=== PATIENT | male | born 1940 | race Hispanic/Latino ===

== ENCOUNTER 2020-06-12 21:12 | Inpatient (IN) | payer OTHER ==
--- OUTSIDE RECORDS SUMMARY | 2020-06-12 21:14 | XMS REPORT ---
:1940 Author Organization [facility] Address [address] 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 404128794 osteoarthritis involving multiple joints Problem Controlled type 2 E11.9 Active 553378447 diabetes mellitus without complication, without long-term current use of insulin Problem 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 Problem Gastroesophageal K21.9 Active 092376436 reflux disease, esophagitis presence not specified Problem Current mild F32.0 Active 33178855 episode of major depressive disorder without prior episode Problem Other chronic pain G89.29 Active 69750586 Problem Need for R26.89 Active 158054836 assistance due to unsteady gait Problem CKD (chronic N18.4 Active 356535423 kidney disease) stage 4, GFR 15-29 ml/min Problem Hyperlipidemia E78.5 Active 58437142 Problem Unsteady gait R26.81 Active 63405672 Problem Chronic kidney N18.4 Active 674716052 disease, stage 4 (severe) Problem Diabetes E11.9 Active 647454673 Problem Vitamin D E55.9 Active 31444659 deficiency Problem Benign prostatic N40.0 Active 773917824 hyperplasia, unspecified whether lower urinary tract symptoms present Problem Primary M17.11 Active 245945708857350 osteoarthritis of right knee Problem Primary M17.12 Active 359493929415551 osteoarthritis of left knee Problem Hypoglycemic E11.649 Active 056606510 episode in patient with diabetes mellitus ALLERGIES No Known Allergies ENCOUNTERS from 1940 to 2020-06-10 Encounter Location Date Provider Diagnosis [facility] Family [address] [facility] [address], [place] [address] IMMUNIZATIONS No Information SOCIAL HISTORY Tobacco Use: Social History Observation Description Date Details (start date - stop date) Former Smoker Sex Assigned At : Social History Observation Description Sex Assigned At Unknown PHQ9 Question Answer Notes Little interest or pleasure in doing things Several days Feeling down, depressed, or hopeless Not at all Trouble falling or staying asleep or sleeping too much Sever al days Feeling tired or having little energy Several days Poor appetite or overeating Not at all Feeling bad about yourself, or that you are a failure, or No t at all have let yourself or your family down Trouble concentrating on things, such as reading the Not at all newspaper or watching television Moving or speaking so slowly that other people could have No t at all noticed; or the opposite, being so fidgety or restless that you have been moving around a lot more than usual Total Score 3 Interpretation Minimal Depression Thoughts that you would be better off or of hurting Not at all yourself in some way Alcohol Screen Question Answer Notes Did you have a drink containing alcohol in the past year? No Points 0 Interpretation Negative Tobacco Use/Smoking Question Answer Notes Are you a former smoker REASON FOR REFERRAL No Information VITAL SIGNS No information MEDICATIONS Medication SIG (Take, Route, Notes Start Date End Date Status Frequency, Duration) Accu-Chek Estephania Plus - as directed In Vitro Active twice a day for 90 Cholecalciferol 5000 UNIT 1 capsule Orally Once a November, Active day for 30 day(s) Simvastatin 20 MG 1 tablet in the evening Active Orally Once a day for 90 day(s) Magnesium Chloride-Calcium as directed Orally November, Active 64-106 MG Glimepiride 4 MG Take 1 tablet by mouth Active twice daily for 90 days for 90 Micardis HCT 80-12.5 MG 1 tablet Orally Once a Active day for 90 days Trulicity 1.5 MG/0.5ML INJECT ONE DOSE UNDER Active THE SKIN ONCE A WEEK for 28 Carvedilol 12.5 MG twice daily Orally daily Active for 90 days Carvedilol 12.5 MG Take 1 tablet by mouth Active twice daily for 90 Trulicity 1.5 MG/0.5ML INJECT 1 DOSE Active SUBCUTANEOUSLY ONCE A WEEK for 90 days Tradjenta 5 MG 1 tablet Orally Once a Active day for 90 days Pioglitazone HCl 15 MG 1 tablet Orally Once a Active day for 30 day(s) Lancets - as directed SC twice Acti ve daily for 90 days BuPROPion HCl ER (SR) 100 TAKE 1 TABLET BY MOUTH Active MG ONCE DAILY IN THE MORNING FOR 90 DAYS for 90 Accu-Chek Estephania Plus - as directed In Vitro Active twice a day for 90 day blood Glucose Test Strips as directed twice a day Active for 90 days Doxazosin Mesylate 1 MG 1 tablet Orally Once a Feb, Active day for 90 days Wellbutrin SR 100 MG 1 tablet in the morning Active Orally Once a day for 90 Wellbutrin SR 100 MG 1 tablet in the morning Active Orally Once a day for 90 days Glimepiride 4 MG 1 tablet Orally twice a Active day for 90 day(s) Allopurinol 100 MG as directed Orally once Active a day for 90 days Gabapentin 300 MG 1 capsule Orally Once a Active day for 90 days Ranitidine HCl 150 MG 1 tablet as needed Active Orally Twice a day for 90 days Glucometer n/s one n/s use as directed Active for 90 days Cetirizine HCl 10 MG 1 tablet Orally Once a Active day for 90 day(s) Pioglitazone HCl 15 MG 1 tablet Orally Once a Aug, Active day for 30 day(s) PROCEDURES No Information RESULTS No Results REASON FOR VISIT positive covid MEDICAL (GENERAL) HISTORY Type Description Date Medical History Diabetes Medical History Benign essential HTN Medical History Hyperlipidemia Medical History Vitamin D deficiency Medical History nsaids-yes Surgical History No Surgical history information Goals Section No Information Health Concerns No Information MEDICAL EQUIPMENT No Information MENTAL STATUS No Information FUNCTIONAL STATUS No Information ASSESSMENTS No Information PLAN OF TREATMENT Medication Medication Name Sig Start Date Stop Date Pioglitazone HCl 15 MG 1 tablet Orally Once a day for 30 day(s) Glucometer n/s one n/s use as directed for 90 days Tradjenta 5 MG 1 tablet Orally Once a day for 90 days Accu-Chek Estephania Plus - as directed In Vitro twice a day for 90 day Micardis HCT 80-12.5 MG 1 tablet Orally Once a day for 90 days Carvedilol 12.5 MG twice daily Orally daily for 90 days blood Glucose Test Strips as directed twice a day for 90 days Trulicity 1.5 MG/0.5ML INJECT 1 DOSE SUBCUTANEOUSLY ONCE A WEEK for 90 days Glimepiride 4 MG 1 tablet Orally twice a day for 90 day(s) Lancets - as directed SC twice daily for 90 days Next Appt Details Provider Name:Genet Díaz, 2020-06-21 03:0 0:00 PM, [address], [address], [place], [address], Insurance Providers Payer Name Payer Payer Insured Patient Coverage Coverage End Address Phone Name Relationship to Start Date Agusto e Insured [phone] Marcie,Hum self 2017 [employer] [id number] [place] [address]
--- OUTSIDE RECORDS SUMMARY | 2020-06-12 21:14 | XMS REPORT | Continuity of Care Document ---
:1940 Author Organization [facility] Address [address] [place] [address] Care Team Providers Name Role Phone Unavailable Unavailable Unavailable Problems This patient has no known problems. Allergies, Adverse Reactions, Alerts This patient has no known allergies or adverse reactions. Medications Ordered Filled Start Stop Current Ordering Indication Dosage Frequency Signature Comments Components Source Medication Medication Date Date Medication? Clinician (SIG) Name Name Doxazosin Doxazosin Yes Na Díaz [address] [facility] Mesylate Mesylate 8-18 [facility]: [facility] 00 [facility] Lancets Lancets 2018-07 Yes Na Díaz as [facility] 0-29 directed [facility] - [facility]: Memoria 00 [facility] blood blood 2018-07- No Na Díaz as [facility] Glucose Glucose 0-29 10-23 directed Luke s - Test Strips Test Strips 00:00: 00:00 Memoria 00 :00 [facility] Allopurinol Allopurinol 2018-07- No Na Díaz as [facility] 0-29 04-26 directed [facility] - 00:00: 00:00 Memoria 00 :00 [facility] Glucometer Glucometer 2018-07- No Na Díaz one [facility] 0-29 04-26 [facility] - 00:[facility]: 00:00 Memoria 00 :00 [facility] Pioglitazon Pioglitazon Yes Na Díaz [address] [facility] e HCl e HCl 2-25 [facility] - 00:[facility]: [facility] 00 [facility] Micardis Micardis 2017-07 Yes Na Díaz [address] [facility] HCT HCT 1-26 [facility] Magnesium Magnesium Yes Na Díaz as [facility] Chloride-Ca Chloride-Ca 5-10 directed [facility] - lcium lcium 00:00: Memoria 00 [facility] Cholecalcif Cholecalcif Yes Na Díaz [address] [facility] philipp philipp 5-10 [facility] - 00:00: [facility] 00 [facility] ent [facility] Wellbutrin Wellbutrin Yes Na Díaz [address] [facility] Accu-Chek Accu-Chek Yes Na Díaz as [facility] Estephania Plus Estephania Plus directed [facility] ent [facility] Carvedilol Carvedilol Yes Na Díaz twice [facility] daily [facility] Cetirizine Cetirizine Yes Na Díaz [address] [facility] HCl HCl [facility] Simvastatin Simvastatin Yes Na Díaz [address] [facility] in the [facility] - evening [facility] Ranitidine Ranitidine Yes Na Díaz [address] [facility] HCl HCl as needed [facility] Wellbutrin Wellbutrin Yes Na Díaz [address] [facility] SR SR in the [facility] Tradjenta Tradjenta Yes Na Díaz [address] [facility] Gabapentin Gabapentin Yes Na Díaz [address] [facility] Glimepiride Glimepiride Yes Na Díaz [address] [facility] BuPROPion BuPROPion Yes Na Díaz TAKE [address] [facility] HCl ER (SR) HCl ER (SR) TABLET BY [facility] - MOUTH ONCE [facility] Clinics DAYS Trulicity Trulicity 2019- No Na Díaz INJECT [address] [facility] [facility] 10-15 DOSE [facility] - 00:00 SUBCUTANEO Memoria :00 USLY ONCE l A WEEK [facility] Clin[facility] Procedures This patient has no known procedures. Encounters Start End Encounter Admission Attending Care Care Encounter Source Date/Time Date/Time Type Type Clinicians Facility Department ID 2020-06-08 2020-06-08 Outpatient [facility] [id number] [facility] 2020-06-06 2020-06-06 [facility] [id number] [facility] 2020-02-23 2020-02-23 [facility] [id number] [facility] 09:02:00 09:02:00 t [facility] [facility] Medicine Outpati ent Clinics 2020-02-04 2020-02-04 [facility] [id number] [facility] 15:00:00 15:00:00 t [employer] [facility] Medicine Outpati ent Clinics 2020-01-23 2020-01-23 [facility] [id number] 13:45:00 13:45:00 t [employer] [facility] Medicine Outpati ent Clinics 2019-10-29 2019-10-29 [facility] [id number] [facility] 10:40:00 10:40:00 t [employer] [facility] Medicine Outpati ent Clinics 2019-08-05 2019-08-05 [facility] [id number] [address] 08:00:00 08:00:00 t [employer] Consult[employer] [facility] Medicine Outpati ent Clinics 2019-07-24 2019-07-24 [facility] [id number] 16:14:00 16:14:00 t [employer] Consult[employer] [facility] Medicine Outpati ent Clinics 2019-05-05 2019-05-05 [facility] [id number] 13[facility]40:00 13:40:00 t [employer] Consult[employer] [facility] Medicine Outpati ent Clinics 2019-02-02 2019-02-02 [facility] [id number] [address] 10:00:00 10:00:00 t Bone Bone and [facility] ent Clinics 2019-01-21 2019-01-21 [facility] [id number] 11:00:00 11:00:[address] LuIntradiem s - Drive [facility] Medicine Outpati ent Clinics 2018-12-23 2018-12-23 [facility] [id number] [address] 10:23:00 10:23:00 t [place] [employer] s - Drive [facility] Medicine Outpati ent Clinics 2018-09-17 2018-09-17 [facility] [id number] 10:35:00 10:35:00 t [place] [employer] [employer] - [place] [facility] Medicine Outpati ent Clinics 2018-09-09 2018-09-09 [facility] [id number] 10:45:00 10:45:00 t [place] [employer] - Drive [facility] Medicine Outpati ent Clinics 2018-08-12 2018-08-12 [facility] [id number] 10:30:00 10:30:00 t [place] [employer] - Drive [facility] Medicine Outpati ent Clinics 2018-02-19 2018-02-19 [facility] [id number] 09:30:00 09:30:00 t [place] [employer] [employer] - [place] [facility] Medicine Outpati ent Clinics 2017-11-19 2017-11-19 [facility] [id number] 11:00:00 11:00:00 t [place] [employer] [employer] - [place] [facility] Medicine Outpati ent Clinics Results This patient has no known results.
--- OUTSIDE RECORDS SUMMARY | 2020-06-12 21:14 | XMS REPORT ---
:1940 Author Organization [facility] Address [address] [place], [address] [place] [address] Care Team Providers Name Role Phone Díaz Unavailable [phone] PROBLEMS Type Condition ICD9-CM [id number] Onset Condition SNOMED Code Notes Code Code Dates Status Problem Vitamin D E55.9 Active 98839661 deficiency Problem Hyperlipidemia E78.5 Active 68299805 Problem Controlled type 2 E11.9 Active 797209471 diabetes mellitus without complication, without long-term current use of insulin Problem Benign essential I10 Active 21700658 HTN Problem Obesity (BMI E66.9 Active 193084748 30-39.9) Problem CKD (chronic N18.3 Active 419004383 kidney disease) stage 3, GFR 30-59 ml/min Problem Neuropathy G62.9 Active 008153165 Problem Hyperglycemia R73.9 Active 11499586 Problem CKD (chronic N18.4 Active 558079829 kidney disease) stage 4, GFR 15-29 ml/min Problem 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 458221085 with chronic renal failure Problem Seasonal allergies J30.2 Active 201644817 Problem Primary M17.11 Active 156819468311647 osteoarthritis of right knee Problem Chronic kidney N18.4 Active 031497438 disease, stage 4 (severe) Problem Primary M17.12 Active 925600880138449 osteoarthritis of left knee Problem 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 Active 977473848 osteoarthritis involving multiple joints Problem Diabetes E11.9 Active 748685182 Problem Gastroesophageal K21.9 Active 962550085 reflux disease, esophagitis presence not specified Problem Current mild F32.0 Active 26818274 episode of major depressive disorder without prior episode Problem Other chronic pain G89.29 Active 40399534 Problem Benign prostatic N40.0 Active 803737734 hyperplasia, unspecified whether lower urinary tract symptoms present ALLERGIES No Known Allergies ENCOUNTERS from 1940 to 2020-06-07 Encounter Location Date Provider Diagnosis [facility] [address] [facility] [address], [address] [place] [address] IMMUNIZATIONS No Information SOCIAL HISTORY Tobacco Use: [...] Start Date End Date Status Frequency, Duration) Ranitidine HCl 150 MG 1 tablet as needed Active Orally Twice a day for 90 days Pioglitazone HCl 15 MG 1 tablet Orally Once a Active day for 30 day(s) Tradjenta 5 MG 1 tablet Orally Once a Active day for 90 days Doxazosin Mesylate 1 MG 1 tablet Orally Once a Feb, 0 Active day for 90 days Gabapentin 300 MG 1 capsule Orally Once Active a day for 90 days Pioglitazone HCl 15 MG 1 tablet Orally Once a Aug, Active day for 30 day(s) Wellbutrin SR 100 MG 1 tablet in the Active morning Orally Once a day for 90 days Cholecalciferol 5000 UNIT 1 capsule Orally Once 10 May, 20 18 Active a day for 30 day(s) Lancets - as directed SC twice Acti ve daily for 90 days blood Glucose Test Strips as directed twice a Active day for 90 days Simvastatin 20 MG 1 tablet in the Ac tive evening Orally Once a day for 90 day(s) Glimepiride 4 MG Take 1 tablet by mouth Active twice daily for 90 days for 90 Glucometer n/s one n/s use as Active directed for 90 days Wellbutrin SR 100 MG 1 tablet in the Active morning Orally Once a day for 90 Trulicity 1.5 MG/0.5ML INJECT ONE DOSE UNDER Active THE SKIN ONCE A WEEK for 28 Micardis HCT 80-12.5 MG 1 tablet Orally Once a Active day for 90 days BuPROPion HCl ER (SR) 100 MG TAKE 1 TABLET BY MOUTH Active ONCE DAILY IN THE MORNING FOR 90 DAYS for 90 Allopurinol 100 MG as directed Orally Active once a day for 90 days Accu-Chek Estehpania Plus - as directed In Vitro Active twice a day for 90 Magnesium Chloride-Calcium as directed Orally November, Active 64-106 MG Cetirizine HCl 10 MG 1 tablet Orally Once a Active day for 90 day(s) Carvedilol 12.5 MG Take 1 tablet by mouth Active twice daily for 90 PROCEDURES No Information RESULTS No Results REASON FOR VISIT Sick visit MEDICAL (GENERAL) HISTORY Type Description Date Medical [...] Medication Name Sig Start Date Stop Date Glimepiride 4 MG Take 1 tablet by mouth twice daily for 90 days for 90 Doxazosin Mesylate 1 MG 1 tablet Orally Once a day for 90 days 1 Feb, Trulicity 1.5 MG/0.5ML INJECT ONE DOSE UNDER THE SKIN ONCE A WEEK for 28 Carvedilol 12.5 MG Take 1 tablet by mouth twice daily for 90 Accu-Chek Estephania Plus - as directed In Vitro twice a day for 90 Next Appt Details Provider Name:Genet Díaz, 2020-06-08 10:2 0:00 AM, [address], [place], [address], Provider Name:Genet Díaz, 2020-06-21 03:0 0:00 PM, [address], [address], [place], [address], Insurance Providers Payer Name Payer Payer Insured Patient Coverage Coverage End Address Phone Name Relationship to Start Date Agusto e Insured [phone] Roseann Jack self 2017 [employer] [id number] [facility] [address] [place] [address]
[2020-06-12 22:01] LABS: Absolute Lymphocytes (CBC) 1.2 K/uL (0.7-4.9); Basophils % 0.5 % (0-1.3); Hematocrit 32.7 % (39.6-49.0); Lymphocytes % 7.5 % (15.3-44.8); MPV 8.3 fL (7.6-11.3); RBC Red Blood Cell Count 3.67 M/uL (4.33-5.43)
[2020-06-12 22:12] LABS: Protime INR 1.37
[2020-06-12 22:20] LABS: ALT/SGPT 57 U/L (12-78); AST/SGOT 46 U/L (15-37); Albumin 2.2 g/dL (3.4-5.0); Alkaline Phosphatase 108 U/L (45-117); BUN Blood Urea Nitrogen 22 mg/dL (7-18); Bicarbonate 29 mmol/L (21-32); Bilirubin Direct 0.2 mg/dL (0-0.2); Bilirubin Total 0.5 mg/dL (0.2-1.0); CKMB Creatine Kinase MB < 1.0 ng/mL (0.3-3.6); Creatine Phosphokinase 54 U/L (39-308); Glucose Level 180 mg/dL (74-106); Lipase 122 U/L (73-393); Magnesium 2.1 mg/dL (1.8-2.4); NT PRO-BNP 644 pg/mL (<450); Potassium 4.5 mmol/L (3.5-5.1); Protein, Total 8.9 g/dL (6.4-8.2); Sodium Level 138 mmol/L (136-145); Troponin (Emerg Dept Use Only) < 0.02 ng/mL (0.0-0.045)
--- NOTE | 2020-06-12 22:49 | EDPHYS ---
Physician Documentation [facility] Name: Brett Jack Age: 80 yrs Sex: Male : 1940 Arrival Date: 06/12/2020 Time: 21:15 Bed 5 Private MD: ED Physician Gildardo Ferrara HPI: 06/12 23:02 This 80 yrs old Male presents to ER via Wheelchair with complaints of Low tw4 Oxygen, Covid+. 23:02 The patient has shortness of breath at rest. Onset: The symptoms/episode began/occurred tw4 2 week(s) ago. Duration: The symptoms are continuous, and are unchanged since they started. The patient's shortness of breath has no apparent modifying factors. Associated signs and symptoms: The patient has no apparent associated signs or symptoms. Severity of symptoms: At their worst the symptoms were moderate in the emergency department the symptoms are unchanged. The patient has not experienced similar symptoms in the past. Historical: - Allergies: 21:25 No Known Allergies; ca1 - PMHx: 21:25 Diabetes - NIDDM; Hypertension; ca1 - PSHx: 21:25 None; ca1 - Immunization history:: Adult Immunizations up to date, Flu vaccine is not up to date. - Social history:: Smoking status: Patient denies any tobacco usage or history of. ROS: 23:02 Constitutional: Negative for fever, chills, and weight loss, Eyes: Negative for injury, tw4 pain, redness, and discharge, Cardiovascular: Negative for chest pain, palpitations, and edema, Abdomen/GI: Negative for abdominal pain, nausea, vomiting, diarrhea, and constipation, Back: Negative for injury and pain, MS/Extremity: Negative for injury and deformity, Skin: Negative for injury, rash, and discoloration, Neuro: Negative for headache, weakness, numbness, tingling, and seizure. 23:02 Respiratory: Positive for shortness of breath, Negative for cough, dyspnea on exertion, hemoptysis, orthopnea, pleurisy. Exam: 23:02 Constitutional: This is a well developed, well nourished patient who is awake, alert, tw4 and in no acute distress. Head/Face: Normocephalic, atraumatic. Chest/axilla: Normal chest wall appearance and motion. Nontender with no deformity. No lesions are appreciated. Cardiovascular: Regular rate and rhythm with a normal S1 and S2. No gallops, murmurs, or rubs. Normal PMI, no JVD. No pulse deficits. Respiratory: Lungs have equal breath sounds bilaterally, clear to auscultation and percussion. No rales, rhonchi or wheezes noted. No increased work of breathing, no retractions or nasal flaring. Abdomen/GI: Soft, non-tender, with normal bowel sounds. No distension or tympany. No guarding or rebound. No evidence of tenderness throughout. Back: No spinal tenderness. No costovertebral tenderness. Full range of motion. MS/ Extremity: Pulses equal, no cyanosis. Neurovascular intact. Full, normal range of motion. Neuro: Awake and alert, GCS 15, oriented to person, place, time, and situation. Cranial nerves II-XII grossly intact. Motor strength 5/5 in all extremities. Sensory grossly intact. Cerebellar exam normal. Normal gait. Vital Signs: 21:20 BP 150 / 65; Pulse 102; Resp 20 S; Temp 100.6(O); Pulse Ox 82% on R/A; Weight 114 kg ca1 (R); Height 5 ft. 10 in. (180 cm) (R); 22:05 BP 145 / 70; Pulse 82; Resp 22; Pulse Ox 91% on 4 lpm NC; lp1 23:09 BP 152 / 51; Pulse 81; Resp 22; Pulse Ox 93% on 4 lpm NC; wh 06/13 00:12 BP 160 / 91; Pulse 83; Resp 22; Temp 99.6; Pulse Ox 93% on 4 lpm NC; wh 06/12 21:20 Body Mass Index 35.19 (114.00 kg, 180 cm) ca1 MDM: 06/12 21:26 Patient medically screened. tw4 23:09 Differential diagnosis: Anemia Anxiety Reaction pneumonia, pulmonary edema, Pulmonary tw4 Embolism reactive airway disease, Sepsis. Antibiotic administration: Zithromax is given. Data reviewed: vital signs, nurses notes. Data interpreted: Pulse oximetry: Interpretation: normal. Counseling: I had a detailed discussion with the patient and/or guardian regarding: the historical points, exam findings, and any diagnostic results supporting the discharge/admit diagnosis, lab results. Physician consultation: Dionte Lee MD was contacted at 23:11, regarding admission, to the telemetry unit. and will see patient in inpatient room, shortly. 06/12 21:34 Order name: Blood Culture Adult (2) [facility] 06/12 21:34 Order name: BMP tw 06/12 22:43 Interpretation: Normal except: GLUC 180; BUN 22; CRE 1.54; GFR 44. tw 06/12 21:34 Order name: CBC with Diff [facility] 06/12 22:47 Interpretation: Normal except: WBC 16.7; RBC 3.67; HGB 10.5; HCT 32.7; PLT 543; NEUT A tw4 14.3; LYM% 7.5; JOAO% 85.6. 12 21:34 Order name: Ckmb [facility] 06/12 22:45 Interpretation: Normal except: CKMB < 1.0. tw 06/12 21:34 Order name: CPK [facility] 06/12 22:45 Interpretation: Normal except: CPK 54. [facility] 06/12 21:34 Order name: D-Dimer; Complete Time: 22:42 [facility] 06/12 22:44 Interpretation: Normal except: D-DIMER 44327. tw 06/12 21:34 Order name: Hepatic Function [facility] 06/12 22:45 Interpretation: Normal except: AST 46; TP 8.9; ALB 2.2; GLOB 6.7; A/G 0.3. tw 06/12 21:34 Order name: Lipase [facility] 06/12 22:45 Interpretation: Within normal limits: LIP 122. [facility] 06/12 21:34 Order name: Magnesium [facility] 06/12 22:45 Interpretation: Within normal limits: MG 2.1. [facility] 06/12 21:34 Order name: NT PRO-BNP [facility] 06/12 22:45 Interpretation: Normal except: NT PRO-BNP 644. [facility] 06/12 21:34 Order name: PT-INR; Complete Time: 22:42 [facility] 06/12 22:45 Interpretation: Normal except: PT 16.1. tw 06/12 21:34 Order name: Ptt, Activated; Complete Time: 22:42 [facility] 06/12 22:46 Interpretation: Within normal limits: PTT 27.0. [facility] 06/12 21:34 Order name: Troponin (emerg Dept Use Only) [facility] 06/12 21:56 Order name: Lactate; Complete Time: 22:42 mw2 06/12 22:45 Interpretation: Normal except: LAC 2.9. tw4 06/12 21:34 Order name: XRAY CXR (1 view) tw4 06/12 21:34 Order name: EKG; Complete Time: 21:35 tw4 06/12 22:13 Order name: Manual Differential EDMS 06/12 23:19 Order name: Basic Metabolic Panel EDMS 06/12 23:19 Order name: Basic Metabolic Panel EDMS 06/12 23:19 Order name: CBC with Automated Diff EDMS 06/12 23:19 Order name: CBC with Automated Diff EDMS 06/12 23:27 Order name: Lipid Profile EDMS 06/12 23:27 Order name: Hemoglobin A1c EDMS 06/13 00:44 Order name: Lipid Profile EDMS 06/13 01:40 Order name: Lactate Sepsis 2 HR Follow-up EDMS 06/13 07:48 Order name: Glucose, Ancillary Testing EDMS 06/13 11:36 Order name: Glucose, Ancillary Testing EDMS 06/13 17:12 Order name: Glucose, Ancillary Testing EDMS 06/12 21:34 Order name: Cardiac monitoring; Complete Time: 21:58 tw4 06/12 21:34 Order name: EKG - Nurse/Tech; Complete Time: 21:58 tw4 06/12 21:34 Order name: IV Saline Lock; Complete Time: 21:58 tw4 06/12 21:34 Order name: Labs collected and sent; Complete Time: 21:58 tw4 06/12 21:34 Order name: O2 Per Protocol; Complete Time: 21:58 tw4 06/12 21:34 Order name: O2 Sat Monitoring; Complete Time: 21:58 tw4 06/12 23:19 Order name: Heart Healthy EDMI Administered Medications: 22:58 Drug: SOLU-Medrol 80 mg Route: IVP; Site: right antecubital; 23:12 Follow up: Response: No adverse reaction 23:00 Drug: Zithromax 500 mg Route: IVPB; Infused Over: 1 hrs; Site: right antecubital; 23:12 Follow up: Response: No adverse reaction; IV Status: Infusion continued upon admission Disposition: 06/12/20 22:48 Hospitalization ordered by Dionte Lee for Inpatient Admission. Preliminary diagnosis are Coronavirus infection, unspecified, Hypoxemia. - Bed requested for Intensive Care Unit. - Status is Inpatient Admission. mg2 - Condition is Stable. - Problem is an ongoing problem. - Symptoms are unchanged. Signatures: Dispatcher [employer] EDMS Na Pacheco bd Kathy Falk, RN RN Hamlet Bowling Terrence, MD MD tw4 Alverto Verduzco RN RN mg2 Mere, MOHAN Blackwood RN ca1 Corrections: (The following items were deleted from the chart) 22:51 22:48 Hospitalization Ordered by Dionte Lee MD for Inpatient Admission. Preliminary diagnosis is Coronavirus infection, unspecified; Hypoxemia. Bed requested for Telemetry/MedSurg (Inpatient). Status is Inpatient Admission. Condition is Stable. Problem is an ongoing problem. Symptoms are unchanged. tw 06/13 16:56 12 22:51 06/12/2020 22:48 Hospitalization Ordered by Dionte Lee MD for bd Inpatient Admission. Preliminary diagnosis is Coronavirus infection, unspecified; Hypoxemia. Bed requested for [facility] ER HOLD. Status is Inpatient Admission. Condition is Stable. Problem is an ongoing problem. Symptoms are unchanged. 06/13 19:10 16:56 06/12/2020 22:48 Hospitalization Ordered by Dionte Lee MD for Inpatient mg2 Admission. Preliminary diagnosis is Coronavirus infection, unspecified; Hypoxemia. Bed requested for Intensive Care Unit. Status is Inpatient Admission. Condition is Stable. Problem is an ongoing problem. Symptoms are unchanged. bd
--- NOTE | 2020-06-12 22:49 | ER ---
Nurse's Notes [facility] Name: Brett Jack Age: 80 yrs Sex: Male : 1940 Arrival Date: 06/12/2020 Time: 21:15 Bed 5 Private MD: Diagnosis: Coronavirus infection, unspecified;Hypoxemia Presentation: 06/12 21:20 Chief complaint: Patient's son or daughter states: niece: Tested Positive for Covid on ca1 Saturday. Had symptoms for 2 weeks. His O2 has never gone up to 85%. SOB x 2 days. Fever. Coronavirus screen: Client denies travel out of the [place] in the last 14 days. Client presents with at least one sign or symptom that may indicate coronavirus-19. Standard/surgical mask placed on the client. Provider contacted for isolation considerations. Client reports previous positive COVID test result. Date of collection: June 08, 2020. Ebola Screen: Patient negative for fever greater than or equal to 101.5 degrees Fahrenheit, and additional compatible Ebola Virus Disease symptoms Patient denies exposure to infectious person. Patient denies travel to an Ebola-affected area in the 21 days before illness onset. No symptoms or risks identified at this time. Initial Sepsis Screen: Does the patient meet any 2 criteria? Temp <36.0*C (96.8*F)) or > 38.3*C (100.9*F). HR > 90 bpm. Yes Does the patient have a suspected source of infection? Yes: Productive cough/pneumonia. Risk Assessment: Do you want to hurt yourself or someone else? Patient reports no desire to harm self or others. Onset of symptoms was June 12, 2020. 21:20 Method Of Arrival: Wheelchair ca1 21:20 Acuity: SAM 2 ca1 Historical: - Allergies: 21:25 No Known Allergies; ca1 - PMHx: 21:25 Diabetes - NIDDM; Hypertension; ca1 - PSHx: 21:25 None; ca1 - Immunization history:: Adult Immunizations up to date, Flu vaccine is not up to date. - Social history:: Smoking status: Patient denies any tobacco usage or history of. Screenin:00 Fall Risk None identified. wh 22:04 Abuse screen: Denies threats or abuse. Denies injuries from another. Nutritional lp1 screening: No deficits noted. Tuberculosis screening: No symptoms or risk factors identified. Assessment: 21:30 General: Appears in no apparent distress. Behavior is calm, cooperative, appropriate wh for age. Pain: Denies pain. Neuro: Level of Consciousness is awake, alert, obeys commands, Oriented to person, place, time, situation, Appropriate for age. Cardiovascular: Heart tones S1 S2 Rhythm is regular. Respiratory: Reports shortness of breath cough that is Airway is patent Respiratory effort is even, labored, Respiratory pattern is tachypnea Breath sounds are clear bilaterally. GI: Abdomen is flat, non-distended. : No signs and/or symptoms were reported regarding the genitourinary system. EENT: No signs and/or symptoms were reported regarding the EENT system. Derm: Skin is intact, is healthy with good turgor, Skin is pink, warm \T\ dry. normal. Musculoskeletal: Circulation, motion, and sensation intact. 23:00 Reassessment: Patient appears in no apparent distress at this time. No changes from previously documented assessment. Patient and/or family updated on plan of care and expected duration. Pain level reassessed. Patient is alert, oriented x 3, equal unlabored respirations, skin warm/dry/pink. 06/13 00:12 Reassessment: Patient appears in no apparent distress at this time. Patient and/or family updated on plan of care and expected duration. Pain level reassessed. Patient is alert, oriented x 3, equal unlabored respirations, skin warm/dry/pink. Vital Signs: 06/12 21:20 BP 150 / 65; Pulse 102; Resp 20 S; Temp 100.6(O); Pulse Ox 82% on R/A; Weight 114 kg ca1 (R); Height 5 ft. 10 in. (180 cm) (R); 22:05 BP 145 / 70; Pulse 82; Resp 22; Pulse Ox 91% on 4 lpm NC; lp1 23:09 BP 152 / 51; Pulse 81; Resp 22; Pulse Ox 93% on 4 lpm NC; wh 06/13 00:12 BP 160 / 91; Pulse 83; Resp 22; Temp 99.6; Pulse Ox 93% on 4 lpm NC; 06/12 21:20 Body Mass Index 35.19 (114.00 kg, 180 cm) ca1 ED Course: 06/12 21:15 Patient arrived in ED. cl3 21:24 Triage completed. ca1 21:25 Arm band placed on right wrist. ca1 21:26 Gildardo Ferrara MD is Attending Physician. tw4 21:35 Patient has correct armband on for positive identification. Placed in gown. Bed in low lp1 position. Call light in reach. Side rails up X2. electronic device monitor on. Pulse ox on. NIBP on. 21:40 Inserted saline lock: 20 gauge in right antecubital area, using aseptic technique. lp1 Blood collected. 21:40 Initial lab(s) drawn, by me, sent to lab. First set of blood cultures drawn by me. lp1 21:58 Hamlet Bowling is Primary Nurse. 22:45 XRAY CXR (1 view) In Process Unspecified. EDMS 22:47 Dionte Lee MD is Hospitalizing Provider. tw4 12 00:13 No provider procedures requiring assistance completed. Patient admitted, IV remains in place. Administered Medications: 06/12 22:58 Drug: SOLU-Medrol 80 mg Route: IVP; Site: right antecubital; 23:12 Follow up: Response: No adverse reaction 23:00 Drug: Zithromax 500 mg Route: IVPB; Infused Over: 1 hrs; Site: right antecubital; 23:12 Follow up: Response: No adverse reaction; IV Status: Infusion continued upon admission Outcome: 22:48 Decision to Hospitalize by Provider. tw4 06/13 00:13 Admitted to ER Hold. Please see [facility] for further documentation. Condition: stable Instructed on the need for admit. 19:10 Patient left the ED. mg2 Signatures: Dispatcher [employer] EDMS Zeny Qureshi RN RN lp1 Hamlet Bowling Gildardo Ferrara MD MD tw4 Alverto Verduzco RN RN mg2 Merced Severino RN RN ca1 Jose Kendrick cl3
[2020-06-12] MEDS ORDERED: AZITHROMYCIN 500 MG INJ IVPB ONE (23:03)
[2020-06-12] MEDS ORDERED: METHYLPREDNISOLONE 125 MG INJ ONE (23:04)
[2020-06-12] MEDS ORDERED: NA CHLORIDE 0.9% 250 ML ONE (23:04)
[2020-06-12] MEDS: APIXABAN 5 MG TABLET PO SCH (23:13)
[2020-06-12] MEDS ORDERED: METHYLPREDNISOLONE 40 MG INJ IV STA (23:13)
[2020-06-12] MEDS ORDERED: D50W 25 GM/50 ML SYRINGE IV PRN (23:21)
[2020-06-12] MEDS ORDERED: GLUCAGON 1 MG/VIAL IM PRN (23:21)
--- NOTE | 2020-06-12 23:27 | P.HP ---
Certification for Inpatient With expected LOS: >2 Midnights Patient will require the following post-hospital care: None Practitioner: I am a practitioner with admitting privileges, knowledge of patient current condition, hospital course, and medical plan of care. Services: Services provided to patient in accordance with Admission requirements found in Title 42 Section 412.3 of the Code of Federal Regulations Patient History Date of Service: 06/13/20 Reason for admission: COVID pneumonia History of Present Illness: Patient is 80 years of a patient's relative state the was tested positive for tierney virus infection on when is day has symptoms for the preceding 2 weeks he has been persistently hypoxic worsening shortness of breath came here to the emergency room with hypoxemia history of diabetes hypertension Allergies No Known Allergies Allergy (Verified 06/13/20 00:37) - Past Medical/Surgical History -: Diabetes -: Hypertension Physical Examination - Vital Signs Temperature: 100.6 F Blood Pressure: 150/65 Pulse: 102 Respirations: 20 Pulse Ox (%): 82 - Physical Exam General: Alert, Cooperative Respiratory: Clear to auscultation bilaterally Cardiovascular: No edema, Normal S1 S2 - Studies Laboratory Data (last 24 hrs) 06/12/20 21:40: PT 16.1 H, INR 1.37, APTT 27.0 06/12/20 21:40: WBC 16.7 H, Hgb 10.5 L, Hct 32.7 L, Plt Count 543 H 06/12/20 21:40: Sodium 138, Potassium 4.5, BUN 22 H, Creatinine 1.54 H, Glucose 180 H, Magnesium 2.1, Total Bilirubin 0.5, AST 46 H, ALT 57, Alkaline Phosphatase 108, Lipase 122 Assessment and Plan - Problems (Diagnosis) (1) Pneumonia due to 2019 novel coronavirus Current Visit: Yes Status: Acute Plan: Patient is 80 years of age admitted with pneumonia due to tierney virus plan to admit to the hospital start on high dose steroids anticoagulation multi vitamin supplementation BiPAP titrate sat to 90% labs reviewed years renal insufficiency Plan to discharge in: Greater than 2 days - Advance Directives Does patient have a Living Will: No Does patient have a Durable POA for Healthcare: No
[2020-06-12 23:39] LABS: Blood Morphology Comment NOT SEEN (NOT SEEN); Platelet Estimate ADEQ
[2020-06-13 00:16] VITALS: BMI 36.1
[2020-06-13 00:43] LABS: HDL Cholesterol 34 mg/dL (40-60); LDL Cholesterol, Calculated 75 (<130)
[2020-06-13] MEDS ORDERED: CEFTRIAXONE/SWI 1gm 1 GM/10 ML SYR ONE ×2 (00:51→13:14)
[2020-06-13] MEDS ORDERED: APIXABAN 5 MG TABLET ONE (00:57)
[2020-06-13] MEDS: CEFTRIAXONE/SWI 1gm 1 GM/10 ML SYR IV SCH ×2 (01:00→13:00)
[2020-06-13 04:31] LABS: Absolute Lymphocytes (CBC) 0.5 K/uL (0.7-4.9); Basophils % 0.4 % (0-1.3); Hematocrit 28.6 % (39.6-49.0); Lymphocytes % 3.5 % (15.3-44.8); RBC Red Blood Cell Count 3.25 M/uL (4.33-5.43)
[2020-06-13 04:46] LABS: Potassium 5.3 mmol/L (3.5-5.1)
[2020-06-13] MEDS: INSULIN -REGULAR HUMAN 50 UNIT/0.5 ML ML SQ SCH ×4 (07:30→20:43)
[2020-06-13] MEDS ORDERED: INSULIN -REGULAR HUMAN 50 UNIT/0.5 ML ML SQ SCH (07:30)
[2020-06-13] MEDS ORDERED: INSULIN -REGULAR HUMAN 50 UNIT/0.5 ML ML ONE ×3 (08:37→17:33)
--- NOTE | 2020-06-13 08:37 | RAD REPORT ---
EXAM DESCRIPTION: RAD - Chest Single View - 06/12/2020 10:45 pm CLINICAL HISTORY: SOB Chest pain. COMPARISON: CHEST PA AND LAT 2 VIEW dated 09/14/2015 FINDINGS: Portable technique limits examination quality. Moderate interstitial lung opacities bilaterally. This likely indicates viral pneumonia/bronchitis. T he heart is normal in size. No displaced fractures.
[2020-06-13] MEDS ORDERED: METHYLPREDNISOLONE 125 MG INJ ONE (08:41)
[2020-06-13] MEDS ORDERED: FAMOTIDINE 20 MG/2 ML VIAL IV ONE (08:41)
[2020-06-13] MEDS ORDERED: THIAMINE HCL 100 MG TABLET ONE (08:41)
[2020-06-13] MEDS: SITAGLIPTIN PHOS 100 MG TAB PO SCH (09:00)
[2020-06-13] MEDS: FAMOTIDINE 20 MG/2 ML VIAL IV SCH ×2 (09:00→20:42)
[2020-06-13] MEDS: THIAMINE HCL 100 MG TABLET PO SCH (09:00)
[2020-06-13] MEDS ORDERED: CEFTRIAXONE 1 GM/NS 50 ML 1 GM/50 ML BAG IV SCH (09:00)
[2020-06-13] MEDS ORDERED: INFLUENZA VACCINE (for 3y+) 0.5 ML DOSE IMVAC ONE (09:00)
[2020-06-13] MEDS ORDERED: PNEUMOCOCCAL VACCINE 0.5 ML IMVAC ONE (09:00)
[2020-06-13] MEDS: METHYLPREDNISOLONE 125 MG INJ IV SCH ×2 (09:00→20:42)
[2020-06-13] MEDS: APIXABAN 5 MG TABLET PO SCH ×2 (09:00→20:42)
[2020-06-13] MEDS: VITAMIN D 1000 UNIT TAB PO SCH (09:00)
--- NOTE | 2020-06-13 15:05 | P.PN ---
Subjective Date of Service: 06/13/20 Chief Complaint: COVID pneumonia Patient currently on BiPAP with oxygen saturation in the low 90s. Physical Examination - Vital Signs Temperature: 98.3 F Blood Pressure: 136/53 Pulse: 81 Respirations: 19 Pulse Ox (%): 92 - Physical Exam General: Alert, In no apparent distress Neck: JVD not distended Respiratory: Crackles/rales (Bilateral) Cardiovascular: No edema, Regular rate/rhythm Gastrointestinal: Soft and benign, Non-distended Musculoskeletal: No swelling Integumentary: No rashes, No erythema Neurological: Normal strength at 5/5 x4 extr - Studies Laboratory Data (last 24 hrs) 06/12/20 21:40: PT 16.1 H, INR 1.37, APTT 27.0 06/12/20 21:40: WBC 16.7 H, Hgb 10.5 L, Hct 32.7 L, Plt Count 543 H 06/12/20 21:40: Sodium 138, Potassium 4.5, BUN 22 H, Creatinine 1.54 H, Glucose 180 H, Magnesium 2.1, Total Bilirubin 0.5, AST 46 H, ALT 57, Alkaline Phosphatase 108, Triglycerides 121, Cholesterol 133, HDL Cholesterol 34 L, Cholesterol/HDL Ratio 3.91, Lipase 122 Assessment And Plan - Current Problems (Diagnosis) (1) Acute respiratory failure with hypoxia Current Visit: Yes Status: Acute (2) Diabetes mellitus type 2 in obese Current Visit: Yes Status: Acute (3) Chronic kidney disease, stage 3 Current Visit: Yes Status: Acute - Plan Continue IV steroid. Weaned off BiPAP as tolerated. Titrate oxygen He is on Eliquis for thromboembolism prophylaxis. Insulin sliding scale for glucose management. He may probably require Lantus insulin for steroid disease hyperglycemia. Holding glimepiride, Trajenta, Trulicity. Patient started on Januvia. Monitor renal function.
[2020-06-13] MEDS: MELATONIN 3 MG TABLET PO SCH (20:42)
[2020-06-13] MEDS ORDERED: ATORVASTATIN 40 MG TAB PO SCH (21:00)
[2020-06-14] MEDS: CEFTRIAXONE/SWI 1gm 1 GM/10 ML SYR IV SCH (00:21)
[2020-06-14 06:12] LABS: Ferritin 419.7 ng/mL (26-388)
[2020-06-14] MEDS: THIAMINE HCL 100 MG TABLET PO SCH (07:25)
[2020-06-14] MEDS: APIXABAN 5 MG TABLET PO SCH ×2 (07:25→21:00)
[2020-06-14] MEDS: SITAGLIPTIN PHOS 100 MG TAB PO SCH (07:25)
[2020-06-14] MEDS: FAMOTIDINE 20 MG/2 ML VIAL IV SCH ×2 (07:26→21:00)
[2020-06-14] MEDS: VITAMIN D 1000 UNIT TAB PO SCH (07:26)
[2020-06-14] MEDS: METHYLPREDNISOLONE 125 MG INJ IV SCH ×2 (07:26→16:05)
[2020-06-14] MEDS: INSULIN -REGULAR HUMAN 50 UNIT/0.5 ML ML SQ SCH ×4 (08:00→21:00)
--- NOTE | 2020-06-14 09:28 | P.PN ---
Subjective Date of Service: 06/14/20 Chief Complaint: COVID pneumonia Subjective: Improving (feels breathing is slightly better, on HFNC) Review of Systems 10-point ROS is otherwise unremarkable Physical Examination - Vital Signs Temperature: 96.4 F Blood Pressure: 140/54 Pulse: 51 Respirations: 17 Pulse Ox (%): 90 - Physical Exam General: Alert HEENT: Sclerae nonicteric Respiratory: Other (non-labored on HFNC) Cardiovascular: No edema, Regular rate/rhythm Gastrointestinal: Soft and benign, No tenderness Integumentary: No rashes Neurological: Normal speech, Normal affect Assessment & Plan Physician Review Additional Text: Acute respiratory failure with hypoxia secondary to COVID-19 pneumonia DM2 HTN CKD 3 Depression/anxiety continue solumedrol 80 q12hr on HFNC now, continue to titrate as possible pulmonology consulted continue Eliquis for VTE prophylaxis in setting of COVID Patient started on Januvia. Held home glimepiride, Tradjenta, Trulicity, will review glucose, consider restarting if remains elevated continue sliding scale coverage Monitor renal function. dispo: anticipate dc home, likely will need home O2 Time Spent Managing Pts Care (In Minutes): 40
[2020-06-14] MEDS ORDERED: D50W 25 GM/50 ML SYRINGE IV PRN (12:09)
[2020-06-14] MEDS ORDERED: GLUCAGON 1 MG/VIAL IM PRN (12:09)
--- NOTE | 2020-06-14 12:12 | P.PN ---
Subjective Date of Service: 06/14/20 Chief Complaint: COVID pneumonia Subjective: Improving (Pain is improving oxygen requirements declining) Review of Systems General: Weakness Respiratory: Shortness of Breath Physical Examination - Vital Signs Temperature: 96.4 F Blood Pressure: 140/54 Pulse: 51 Respirations: 17 Pulse Ox (%): 90 Assessment & Plan - Problems (Diagnosis) (1) Pneumonia due to 2019 novel coronavirus Current Visit: Yes Status: Acute Plan: Patient admitted with respiratory failure covering decrease channel we at 200 mg daily continue with titrating O2 down Discharge Plan: Home Plan to discharge in: Greater than 2 days
[2020-06-14] MEDS: INSULIN GLARGINE 100 UNITS/ML SQ SCH (12:54)
[2020-06-14] MEDS: GLIMEPIRIDE 2 MG TABLET PO SCH (16:03)
[2020-06-14] MEDS: carvediloL 12.5 MG TAB PO SCH (21:00)
[2020-06-14] MEDS: DOXAZOSIN 2 MG TAB PO SCH (21:00)
[2020-06-14] MEDS: ATORVASTATIN 10 MG TAB PO SCH (21:00)
[2020-06-14] MEDS: MELATONIN 3 MG TABLET PO SCH (21:00)
[2020-06-15] MEDS: METHYLPREDNISOLONE 125 MG INJ IV SCH ×3 (00:54→16:56)
[2020-06-15 05:17] LABS: Absolute Lymphocytes (CBC) 0.7 K/uL (0.7-4.9); Basophils % 0.4 % (0-1.3); Hematocrit 28.1 % (39.6-49.0); Lymphocytes % 3.6 % (15.3-44.8); MPV 8.9 fL (7.6-11.3); RBC Red Blood Cell Count 3.19 M/uL (4.33-5.43)
[2020-06-15 05:53] LABS: C-Reactive Protein 74.7 mg/L (<3.00); Ferritin 352.1 ng/mL (26-388); Magnesium 2.2 mg/dL (1.8-2.4); Potassium 4.4 mmol/L (3.5-5.1)
[2020-06-15 07:56] LABS: Platelet Estimate ADEQ
[2020-06-15 07:58] LABS: Blood Morphology Comment NOT SEEN (NOT SEEN)
[2020-06-15 07:59] LABS: Hypersegmented Neutrophils PRESENT
[2020-06-15] MEDS: VITAMIN D 1000 UNIT TAB PO SCH (08:43)
[2020-06-15] MEDS: carvediloL 12.5 MG TAB PO SCH ×2 (08:44→20:05)
[2020-06-15] MEDS: THIAMINE HCL 100 MG TABLET PO SCH (08:45)
[2020-06-15] MEDS: SITAGLIPTIN PHOS 100 MG TAB PO SCH (08:45)
[2020-06-15] MEDS: GABAPENTIN 300 MG CAP PO SCH (08:45)
[2020-06-15] MEDS: FAMOTIDINE 20 MG/2 ML VIAL IV SCH (08:45)
[2020-06-15] MEDS: GLIMEPIRIDE 2 MG TABLET PO SCH ×2 (08:45→16:56)
[2020-06-15] MEDS: MICARDIS HCT PO SCH (08:46)
[2020-06-15] MEDS: INSULIN GLARGINE 100 UNITS/ML SQ SCH ×2 (08:47→20:06)
[2020-06-15] MEDS ORDERED: HOME MED 1 EA UNK (Simvastatin [Simvastatin] 20 MG Tablet) PO SCH (09:00)
[2020-06-15] MEDS: INSULIN -REGULAR HUMAN 50 UNIT/0.5 ML ML SQ SCH ×4 (09:12→20:07)
[2020-06-15] MEDS: APIXABAN 5 MG TABLET PO SCH ×2 (09:19→20:05)
--- NOTE | 2020-06-15 11:56 | P.PN ---
Subjective Date of Service: 06/15/20 Chief Complaint: COVID pneumonia Condition stable still on 60% FiO2 Review of Systems Respiratory: Shortness of Breath Physical Examination - Vital Signs Temperature: 97.6 F Blood Pressure: 153/63 Pulse: 60 Respirations: 17 Pulse Ox (%): 93 Assessment & Plan - Problems (Diagnosis) (1) Pneumonia due to 2019 novel coronavirus Current Visit: Yes Status: Acute Plan: Respiratory failure from tierney virus continue to monitor CRP is declining change to p.o. Pepcid white count elevated added Levaquin
[2020-06-15] MEDS: levoFLOXacin 500 MG TAB PO SCH (12:28)
--- NOTE | 2020-06-15 14:19 | P.PN ---
Subjective Date of Service: 06/15/20 Chief Complaint: COVID pneumonia Subjective: No new changes (pt feels like he is breathing more comfortably, still requiring HFNC, denies any chest pain/abd pain. no dysuria, no diarrhea.) Review of Systems 10-point ROS is otherwise unremarkable Physical Examination - Vital Signs Temperature: 97.6 F Blood Pressure: 153/63 Pulse: 60 Respirations: 17 Pulse Ox (%): 93 - Physical Exam General: Alert, In no apparent distress HEENT: Sclerae nonicteric Respiratory: Other (non-labored on HFNC) Cardiovascular: No edema, Regular rate/rhythm Gastrointestinal: Soft and benign, No tenderness Musculoskeletal: No tenderness Integumentary: No rashes Neurological: Normal speech, Normal affect Assessment & Plan Physician Review Additional Text: Acute respiratory failure with hypoxia secondary to COVID-19 pneumonia DM2 HTN CKD 3 Depression/anxiety continue solumedrol 80 q8hr per pulm recommendations; leukocytosis increasing - levaquin started on HFNC now, continue to to titrate as possible CRP downtrending pulmonology consulted continue Eliquis for VTE prophylaxis in setting of COVID Patient started on Januvia. Held home glimepiride, Tradjenta, Trulicity; lantus 15 BID started today per pulm recs continue sliding scale coverage Monitor renal function. dispo: continues to require hospitalization Time Spent Managing Pts Care (In Minutes): 40
[2020-06-15] MEDS: ATORVASTATIN 10 MG TAB PO SCH (20:04)
[2020-06-15] MEDS: FAMOTIDINE 20 MG TAB PO SCH (20:04)
[2020-06-15] MEDS: DOXAZOSIN 2 MG TAB PO SCH (20:05)
[2020-06-15] MEDS: MELATONIN 3 MG TABLET PO SCH (20:05)
[2020-06-16] MEDS: METHYLPREDNISOLONE 125 MG INJ IV SCH ×3 (01:47→17:26)
[2020-06-16 05:33] LABS: Absolute Lymphocytes (CBC) 0.4 K/uL (0.7-4.9); Basophils % 0.2 % (0-1.3); Hematocrit 30.3 % (39.6-49.0); Lymphocytes % 2.5 % (15.3-44.8); MPV 8.8 fL (7.6-11.3); RBC Red Blood Cell Count 3.44 M/uL (4.33-5.43)
[2020-06-16 05:52] LABS: C-Reactive Protein 37.1 mg/L (<3.00); Ferritin 276.3 ng/mL (26-388); Magnesium 2.2 mg/dL (1.8-2.4); Potassium 4.6 mmol/L (3.5-5.1)
[2020-06-16] MEDS: INSULIN GLARGINE 100 UNITS/ML SQ SCH ×3 (08:18→21:50)
[2020-06-16] MEDS: INSULIN -REGULAR HUMAN 50 UNIT/0.5 ML ML SQ SCH ×4 (08:19→21:52)
[2020-06-16] MEDS: GABAPENTIN 300 MG CAP PO SCH (08:20)
[2020-06-16] MEDS: FAMOTIDINE 20 MG TAB PO SCH ×2 (08:20→21:53)
[2020-06-16] MEDS: levoFLOXacin 500 MG TAB PO SCH (08:20)
[2020-06-16] MEDS: APIXABAN 5 MG TABLET PO SCH ×2 (08:20→21:50)
[2020-06-16] MEDS: SITAGLIPTIN PHOS 100 MG TAB PO SCH (08:20)
[2020-06-16] MEDS: VITAMIN D 1000 UNIT TAB PO SCH (08:20)
[2020-06-16] MEDS: THIAMINE HCL 100 MG TABLET PO SCH (08:20)
[2020-06-16] MEDS: GLIMEPIRIDE 2 MG TABLET PO SCH ×2 (08:21→17:25)
[2020-06-16] MEDS: carvediloL 12.5 MG TAB PO SCH ×2 (08:21→21:48)
[2020-06-16] MEDS: MICARDIS HCT PO SCH (08:22)
[2020-06-16 09:31] LABS: Blood Morphology Comment NOT SEEN (NOT SEEN); Platelet Estimate INCR
--- NOTE | 2020-06-16 09:56 | P.PN ---
Subjective Date of Service: 06/16/20 Chief Complaint: COVID pneumonia Subjective: Improving (breathing better, more comfortable, tolerating diet, otherwise without complaints overnight on HFNC, now on 5 LNC) Review of Systems 10-point ROS is otherwise unremarkable Physical Examination - Vital Signs Temperature: 98.0 F Blood Pressure: 168/62 Pulse: 57 Respirations: 13 Pulse Ox (%): 92 - Physical Exam General: Alert, In no apparent distress, Oriented x3 HEENT: Sclerae nonicteric Neck: Supple Respiratory: Other (non-labored on 5 LNC) Cardiovascular: No edema, Regular rate/rhythm Gastrointestinal: Soft and benign, No tenderness Integumentary: No rashes Neurological: Normal speech, Normal affect Assessment & Plan Physician Review Additional Text: Acute respiratory failure with hypoxia secondary to COVID-19 pneumonia DM2 HTN CKD 3 Depression/anxiety continue solumedrol 80 q8hr per pulm recommendations; levaquin started 06/15 for leukocytosis - improved today continue to titrate oxygen as tolerated, down to 5LNC CRP downtrending pulmonology consulted continue Eliquis for VTE prophylaxis in setting of COVID hyperglycemic - h/o DM2 and steroid induced - restarted home meds, on lantus 15 BID, may need to increase, will monitor today continue sliding scale coverage renal function at baseline dispo: anticipate dc home in 24-48hrs, will need home O2 Time Spent Managing Pts Care (In Minutes): 35
[2020-06-16] MEDS ORDERED: INSULIN GLARGINE 100 UNITS/ML SQ ONE (10:11)
[2020-06-16] MEDS: FUROSEMIDE 20 MG/ 2ML VIAL IV SCH (12:11)
--- NOTE | 2020-06-16 12:58 | P.PN ---
Subjective Date of Service: 06/16/20 Chief Complaint: COVID pneumonia Improving oxygen requirements declining white count is also declining Review of Systems is unable to be obtained Physical Examination - Vital Signs Temperature: 98.0 F Blood Pressure: 168/62 Pulse: 57 Respirations: 13 Pulse Ox (%): 92 Assessment & Plan - Problems (Diagnosis) (1) Pneumonia due to 2019 novel coronavirus Current Visit: Yes Status: Acute Plan: Respiratory failure from tierney virus CRP is not less than 50 continue to wean down on oxygen blood sugar control increase insulin increase sitagliptin blood pressure mildly elevated renal function improving possible discharge tomorrow if he can maintain sat around 90% on 4 L of nasal cannula oxygen and prednisone 20 b.i.d. full anticoagulation
[2020-06-16] MEDS: DOXAZOSIN 2 MG TAB PO SCH (21:47)
[2020-06-16] MEDS: ATORVASTATIN 10 MG TAB PO SCH (21:51)
[2020-06-16] MEDS: MELATONIN 3 MG TABLET PO SCH (21:54)
[2020-06-17] MEDS: METHYLPREDNISOLONE 125 MG INJ IV SCH ×2 (00:46→09:42)
[2020-06-17 05:20] LABS: Absolute Lymphocytes (CBC) 0.7 K/uL (0.7-4.9); Basophils % 0.1 % (0-1.3); Hematocrit 31.9 % (39.6-49.0); Lymphocytes % 3.5 % (15.3-44.8); MPV 9.1 fL (7.6-11.3); RBC Red Blood Cell Count 3.63 M/uL (4.33-5.43)
[2020-06-17 05:32] LABS: C-Reactive Protein 19.2 mg/L (<3.00); Potassium 4.7 mmol/L (3.5-5.1)
[2020-06-17] MEDS: levoFLOXacin 500 MG TAB PO SCH (08:20)
[2020-06-17] MEDS: MICARDIS HCT PO SCH (09:00)
--- NOTE | 2020-06-17 09:21 | P.PN ---
Subjective Date of Service: 06/17/20 Chief Complaint: COVID pneumonia Subjective: No new changes (tolerated 4L NC most of day yesterday, more SOB this morning, desat down to 84% on 4L, so increased to 5L and SpO2: 90-92%. Desaturates to low 80s with minimal movement.) Review of Systems 10-point ROS is otherwise unremarkable Physical Examination - Vital Signs Temperature: 97.1 F Blood Pressure: 182/70 Pulse: 48 Respirations: 13 Pulse Ox (%): 92 - Physical Exam General: Alert, In no apparent distress Respiratory: Other (mild labored on 5L nc) Cardiovascular: Regular rate/rhythm Gastrointestinal: Soft and benign, No tenderness Musculoskeletal: No tenderness Integumentary: No rashes Neurological: Normal speech, Normal affect Assessment & Plan Physician Review Additional Text: Acute respiratory failure with hypoxia secondary to COVID-19 pneumonia DM2 HTN CKD 3 Depression/anxiety CRP downtrending, will discuss with pulm - may be ablet to de-escalate solumedrol dosing continue levaquin - started 06/15 for leukocytosis / cover for possible bacterial pneumonia continue to titrate oxygen as tolerated, At 5LNC continue Eliquis for VTE prophylaxis in setting of COVID hyperglycemic - h/o DM2 and steroid induced - restarted home meds except for trulicity (non-formulary), lantus increased; continue sliding scale coverage renal function at baseline pt's home BP meds were to be restarted, however he didn't have available and combo wasn't formulary, will order separately and restart trisha dispo: anticipate dc home in 24-48hrs, ideally stable on 3-4 L NC for a day prior to discharge, will need home O2 Time Spent Managing Pts Care (In Minutes): 35
[2020-06-17] MEDS: VITAMIN D 1000 UNIT TAB PO SCH (09:36)
[2020-06-17] MEDS: GLIMEPIRIDE 2 MG TABLET PO SCH ×2 (09:36→16:53)
[2020-06-17] MEDS: SITAGLIPTIN PHOS 100 MG TAB PO SCH (09:37)
[2020-06-17] MEDS: FAMOTIDINE 20 MG TAB PO SCH ×2 (09:37→20:52)
[2020-06-17] MEDS: THIAMINE HCL 100 MG TABLET PO SCH (09:37)
[2020-06-17] MEDS: GABAPENTIN 300 MG CAP PO SCH (09:38)
[2020-06-17] MEDS: APIXABAN 5 MG TABLET PO SCH ×2 (09:38→20:52)
[2020-06-17] MEDS: INSULIN GLARGINE 100 UNITS/ML SQ SCH ×2 (09:39→20:54)
[2020-06-17] MEDS: INSULIN -REGULAR HUMAN 50 UNIT/0.5 ML ML SQ SCH ×4 (09:40→20:54)
[2020-06-17] MEDS: FUROSEMIDE 20 MG/ 2ML VIAL IV SCH (09:41)
[2020-06-17] MEDS: carvediloL 12.5 MG TAB PO SCH ×2 (09:41→20:53)
[2020-06-17] MEDS: VALSARTAN 160 MG TAB PO SCH (09:43)
[2020-06-17] MEDS: hydroCHLOROthiazide 12.5 MG CAP PO SCH (09:43)
--- NOTE | 2020-06-17 11:12 | P.PN ---
Subjective Date of Service: 06/17/20 Chief Complaint: COVID pneumonia Patient is doing much better he is on nasal cannula oxygen feeling better shortness of breath has improved Physical Examination - Vital Signs Temperature: 97.1 F Blood Pressure: 140/93 Pulse: 65 Respirations: 13 Pulse Ox (%): 92 - Physical Exam General: Alert HEENT: Atraumatic Neck: Supple Respiratory: Clear to auscultation bilaterally Cardiovascular: Normal S1 S2 Gastrointestinal: Normal bowel sounds, Soft and benign Assessment & Plan - Problems (Diagnosis) (1) Pneumonia due to 2019 novel coronavirus Current Visit: Yes Status: Acute Plan: Patient is improving doing well for discharge on nasal cannula O2 renal function stable discharge on home medication and prednisone telephone visit with me in a week
[2020-06-17] MEDS: METHYLPREDNISOLONE 40 MG INJ IV SCH (16:55)
[2020-06-17] MEDS: DOXAZOSIN 2 MG TAB PO SCH (20:33)
[2020-06-17] MEDS: ATORVASTATIN 10 MG TAB PO SCH (20:52)
[2020-06-17] MEDS: MELATONIN 3 MG TABLET PO SCH (20:52)
[2020-06-18] MEDS: METHYLPREDNISOLONE 40 MG INJ IV SCH ×2 (00:28→08:52)
[2020-06-18 00:36] VITALS: O2SAT 92
[2020-06-18 05:04] LABS: Absolute Lymphocytes (CBC) 0.7 K/uL (0.7-4.9); Basophils % 0.1 % (0-1.3); Hematocrit 32.7 % (39.6-49.0); Lymphocytes % 3.7 % (15.3-44.8); MPV 9.3 fL (7.6-11.3)
[2020-06-18 05:21] LABS: C-Reactive Protein 10.7 mg/L (<3.00); Potassium 4.2 mmol/L (3.5-5.1)
[2020-06-18] MEDS: MICARDIS HCT PO SCH (08:44)
[2020-06-18] MEDS: SITAGLIPTIN PHOS 100 MG TAB PO SCH (08:49)
[2020-06-18] MEDS: FAMOTIDINE 20 MG TAB PO SCH (08:49)
[2020-06-18] MEDS: VITAMIN D 1000 UNIT TAB PO SCH (08:49)
[2020-06-18] MEDS: THIAMINE HCL 100 MG TABLET PO SCH (08:49)
[2020-06-18] MEDS: levoFLOXacin 500 MG TAB PO SCH (08:50)
[2020-06-18] MEDS: GLIMEPIRIDE 2 MG TABLET PO SCH (08:50)
[2020-06-18] MEDS: FUROSEMIDE 20 MG/ 2ML VIAL IV SCH (08:50)
[2020-06-18] MEDS: hydroCHLOROthiazide 12.5 MG CAP PO SCH (08:50)
[2020-06-18] MEDS: GABAPENTIN 300 MG CAP PO SCH (08:50)
[2020-06-18] MEDS: carvediloL 12.5 MG TAB PO SCH (08:51)
[2020-06-18] MEDS: INSULIN -REGULAR HUMAN 50 UNIT/0.5 ML ML SQ SCH ×2 (08:51→12:59)
[2020-06-18] MEDS: APIXABAN 5 MG TABLET PO SCH (08:52)
[2020-06-18] MEDS: VALSARTAN 160 MG TAB PO SCH (08:53)
[2020-06-18] MEDS: INSULIN GLARGINE 100 UNITS/ML SQ SCH (08:53)
[2020-06-18 09:29] VITALS: TEMP 96.7
[2020-06-18 13:09] VITALS: BP 151/62
--- NOTE | 2020-06-18 20:19 | P.DS ---
Admission Date: 06/12/20 Discharge Date: 06/18/20 Disposition: ROUTINE DISCHARGE Discharge Condition: GOOD Reason for Admission: COVID pneumonia Consultations: Pulmonology - Dr. Lee Procedures: CXR (06/12): moderate insterstitial lung opacities bilaterally. Problem List: Acute respiratory failure with hypoxia secondary to COVID-19 pneumonia DM2, non-insulin dependent HTN CKD 3 Depression/anxiety Brief History of Present Illness: 80yo male, PMH: DM2 & HTN, presented to ED with 2 weeks of worsening shortness of breath and cough. He was found to be hypoxemic due to COVID-19 pneumonia. Hospital Course: Patient was admitted and treated with high dose IV solumedrol, oxygen supplementation, and eliquis for DVT prophylaxis. He slowly improved and was eventually weaned down to 2L NC. He was discharged home with prednisone, levaquin, 81mg aspirin, and a coupon for 1 month free eliquis. He was instructed to at least take a daily 81mg aspirin if the coupon did not work. His copay for eliquis was $500 and Xarelto was even more. He was discharged with home oxygen. He was covered with levaquin for a possible bacterial superinfection. He did require insulin while hospitalized to control his steroid induced hyperglycemia while on high dose steroids. He is to continue on his home medications for diabetes on discharge. He is to f/u with Dr. Lee in ~1 week. Vital Signs/Physical Exam: Temp Pulse Resp BP Pulse Ox 96.7 F L 56 17 151/62 H 92 06/18/20 12:00 06/18/20 12:00 06/18/20 12:00 06/18/20 12:00 06/18/20 12:00 General: Alert, In no apparent distress, Oriented x3 HEENT: Sclerae nonicteric Respiratory: Other (non-labored on 2LNC) Cardiovascular: No edema, Regular rate/rhythm Gastrointestinal: Soft and benign, Non-distended, No tenderness Musculoskeletal: No tenderness Integumentary: No rashes Neurological: Normal speech, Normal affect Laboratory Data at Discharge: WBC 19.9 K/uL (4.3-10.9) H 06/18/20 03:57 Hgb 10.7 g/dL (13.6-17.9) L 06/18/20 03:57 Hct 32.7 % (39.6-49.0) L 06/18/20 03:57 Plt Count 529 K/uL (152-406) H 06/18/20 03:57 PT 16.1 SECONDS (9.5-12.5) H 06/12/20 21:40 INR 1.37 06/12/20 21:40 APTT 27.0 SECONDS (24.3-36.9) 06/12/20 21:40 Sodium 138 mmol/L (136-145) 06/18/20 03:57 Potassium 4.2 mmol/L (3.5-5.1) 06/18/20 03:57 BUN 46 mg/dL (7-18) H 06/18/20 03:57 Creatinine 1.46 mg/dL (0.55-1.3) H 06/18/20 03:57 Glucose 219 mg/dL (74-106) H 06/18/20 03:57 Magnesium 2.2 mg/dL (1.8-2.4) 06/16/20 05:11 Total Bilirubin 0.5 mg/dL (0.2-1.0) 06/12/20 21:40 AST 46 U/L (15-37) H 06/12/20 21:40 ALT 57 U/L (12-78) 06/12/20 21:40 Alkaline Phosphatase 108 U/L (45-117) 06/12/20 21:40 Triglycerides Cancelled 06/13/20 Unknown Cholesterol Cancelled 06/13/20 Unknown HDL Cholesterol Cancelled 06/13/20 Unknown Cholesterol/HDL Ratio Cancelled 06/13/20 Unknown Lipase 122 U/L (73-393) 06/12/20 21:40 Home Medications: Carvedilol [Coreg] 12.5 mg PO BID 06/13/20 Doxazosin [Cardura*] 1 mg PO BEDTIME 06/13/20 Dulaglutide [Trulicity] 1.5 mg SQ 1X 06/13/20 Gabapentin 300 mg PO DAILY 06/13/20 Glimepiride 4 mg PO BID 06/13/20 Linagliptin [Tradjenta] 5 mg PO DAILY 06/13/20 Simvastatin 20 mg PO DAILY 06/13/20 Telmisartan/Hydrochlorothiazid [Micardis Hct 80-12.5 mg Tablet] 1 each PO DAILY 06/13/20 buPROPion HCl [Bupropion HCl Sr] 100 mg PO DAILY 06/13/20 Apixaban [Eliquis] 5 mg PO BID 30 Days #60 tablet 06/18/20 levoFLOXacin [Levaquin*] 500 mg PO DAILY 6 Days #6 tab 06/18/20 predniSONE [Deltasone] 20 mg PO SEECOM #21 tab 06/18/20 New Medications: Apixaban [Eliquis] 5 mg PO BID 30 Days #60 tablet levoFLOXacin [Levaquin*] 500 mg PO DAILY 6 Days #6 tab predniSONE [Deltasone] 20 mg PO SEECOM #21 tab Patient Discharge Instructions: Follow up with Dr. Lee in ~1 week - call his office to schedule an appointment. - you have been sent home with home oxygen, you were stable on 2 liters. Resume home medications. New medications on discharge: Eliquis (apixaban) 5 mg twice a day, this is a blood thinner to help prevent blood clots from COVID-- prednisone 20 mg twice a day for 7 days, then once a day for 7 days. -- Levaquin (levofloxacin) 500 mg tablet, once a day for 6 days. Diet: ADA Activity: Ad cailin Followup: Dionte Lee MD [ACTIVE - CAN ADMIT] - Genet Díaz DO [Primary Care Provider] - Time spent managing pt's care (in minutes): 35
== END 2020-06-18 15:05 | disposition home or self-care (01) | DRG 871 ==
LOC: ER 21:12 → ERHOLD 23:38 → 3RD-ICU 06-13 18:30
PROVIDERS: ADMIT Internal Medicine Sleep Medicine; ATTEND Hospitalist
PROC: 5A09557 Assistance with Respiratory Ventilation, Greater than 96 Consecutive Hours, Continuous Positive Airway Pressure (ICD-10-PCS; principal; 2020-06-12)
DX: A41.89 Other specified sepsis (principal); U07.1 COVID-19; J12.89 Other viral pneumonia; J96.01 Acute respiratory failure with hypoxia; I12.9 Hypertensive chronic kidney disease with stage 1 through stage 4 chronic kidney disease, or unspecified chronic kidney disease; N18.30 Chronic kidney disease, stage 3 unspecified; E11.22 Type 2 diabetes mellitus with diabetic chronic kidney disease; E11.65 Type 2 diabetes mellitus with hyperglycemia; F41.9 Anxiety disorder, unspecified; F32.9 Major depressive disorder, single episode, unspecified; E66.9 Obesity, unspecified; Z68.36 Body mass index [BMI] 36.0-36.9, adult; Z79.84 Long term (current) use of oral hypoglycemic drugs; Z79.01 Long term (current) use of anticoagulants; Z79.52 Long term (current) use of systemic steroids; Z79.899 Other long term (current) drug therapy
CPT/HCPCS: 36415; 71045; 80048; 80061; 80076; 82550; 82553; 82728; 82947; 83036; 83605; 83690; 83735; 83880; 84484; 85025; 85379; 85610; 85730; 86140; 87040; 93005; 94002; 94003; 94660; 96374; 96375; 99285; J0456; J0696; J1815; J1940; J2920; J2930; J7050

== ENCOUNTER 2020-06-28 18:56 | Inpatient (IN) | payer OTHER ==
--- OUTSIDE RECORDS SUMMARY | 2020-06-28 18:59 | XMS REPORT ---
:1940 Author Organization [facility] Address [address] 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 Problem Controlled type 2 E11.9 Active 708470150 diabetes mellitus without complication, without long-term current use of insulin Problem 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 965575433 with chronic renal failure Problem Gastroesophageal K21.9 Active 797044734 reflux disease, esophagitis presence not specified Problem Current mild F32.0 Active 80917326 episode of major depressive disorder without prior episode Problem Other chronic pain G89.29 Active 13640508 Problem Need for R26.89 Active 520343210 assistance due to unsteady gait Problem CKD (chronic N18.4 Active 157235789 kidney disease) stage 4, GFR 15-29 ml/min Problem Hyperlipidemia E78.5 Active 99904317 Problem Unsteady gait R26.81 Active 81614067 Problem Chronic kidney N18.4 Active 104174482 disease, stage 4 (severe) Problem Diabetes E11.9 Active 432231791 Problem Vitamin D E55.9 Active 50099499 deficiency Problem Benign prostatic N40.0 Active 491909066 hyperplasia, unspecified whether lower urinary tract symptoms present Problem Primary M17.11 Active [id number] osteoarthritis of right knee Problem Primary M17.12 Active 727792689480549 osteoarthritis of left knee Problem Hypoglycemic E11.649 Active 255516786 episode in patient with diabetes mellitus ALLERGIES No Known Allergies ENCOUNTERS from 1940 to 2020-06-12 Encounter Location Date Provider Diagnosis [facility] [address], Genet Díaz Fev er, unspecified Family Medicine [address], fever c ause R50.9 ; [place] [address] Body aches R52 ; Contact with an d (suspected) exp osure to other viral communicable di seases Z20.828 ; Hypog lycemic episode in madhu ent with diabetes mellit us E11.649 ; Weakn ess R53.1 ; Benign essential HTN I 10 ; History of rece nt fall Z91.81 and Need for assistance due to unsteady gait R 26.89 IMMUNIZATIONS No Information SOCIAL HISTORY Tobacco Use: [...] REASON FOR REFERRAL No Information VITAL SIGNS Height 70 in Jun, Weight 250 lbs Jun, BMI 35.87 kg/m2 Jun, MEDICATIONS Medication SIG (Take, Route, Notes Start [...] Feb, 0 Active day for 90 days Wellbutrin SR [...] 15 MG 1 tablet Orally Once a 25 Aug, 2018 Active day for 30 day(s) PROCEDURES No Information RESULTS Component Value Reference Range FLU TEST A/B Reviewed date:06/08/2020 17:49:35 Interpretation:Negative Performing Lab: A Negative B Negative Novel Coronavirus (COVID-19), ANNA Reviewed date:06/10/2020 14:34:13 Interpretation: Performing Lab:, [facility] [place], [facility] [address], [place], [place] [id number], Phone - [phone], Director - [facility] SARS-CoV-2, ANNA Detected Not Detected REASON FOR VISIT covid symptoms, Telehealth Visit, covid exp/, fever, cough, body aches MEDICAL (GENERAL) HISTORY Type Description Date Medical History Diabetes Medical History Benign essential HTN Medical History Hyperlipidemia Medical History Vitamin D deficiency Medical History nsaids-yes Surgical History No Surgical history information Goals Section No Information Health Concerns No Information MEDICAL EQUIPMENT No Information MENTAL STATUS No Information FUNCTIONAL STATUS No Information ASSESSMENTS Encounter Date Diagnosis Assessment Notes Treatment Notes Treatm ent Clinical Notes Jun, Fever, unspecified symptomatic fever cause treatment (ICD-10 - R50.9) -increase fluids, vitamin c, increase moisture in air with humidier, and avoid other persons with colds to prevent further spread during the infective period usually first 3-4 days. -a viral illness is an acute and contagious viral infection of the upper respiratory tract that is most often caused by many different viruses and sometimes bacteria. viral illness often lasts 7-14 days and will resolve on its\'s one and treatment is usually with supportive care to help alleviate symptoms. Patient told to call physician or return to clinic if symptoms worsen if fever above 104F or fever of T 100.4F lasting longer than 3 days, increased sore throat or persistent cough with increasing thick or yellow sputum or with any problems. Jun, Body aches (ICD-10 tylenol as needed - R52) max of 2000mg a day. Jun, Contact with and get plenty of (suspected) rest, vitamin C, D exposure to other 3, zinc to help viral communicable boost your immune diseases (ICD-10 - system. As you are Z20.828) getting better, your immune systems has cleared the virus , and the rest is your body healing. Treat your symptoms or any fever with otc medications as directed. Get plenty of rest and stay well hydrated with fluids.__ recommend to monitor temperature control with tylenol fever is anything above 100.4 F, monitor your oxygen saturation with a pulse oximeter call clinic or go to ER if oxygen less than 90 %get plenty of rest, vitamin C, D 3, zinc to help boost your immune system. As you are getting better, your immune systems has cleared the virus , and the rest is your body healing. Treat your symptoms or any fever with otc medications as directed. Get plenty of rest and stay well hydrated with fluids.-- recommend to monitor temperature control with tyelnol fever is anything above 100.4 F, monitor your oxygen saturation with a pulse oximeter call clinic or go to ER if oxygen less than 90 %discussed sometimes testing may be too early and may result in false negatives so need to be symptoms free and quarantine until results negative and symptom free for at least 72 hours or quarantine for 14 days to be safe. Jun, Hypoglycemic Patient advised to episode in patient hold glimeperide with diabetes and pioglitazone mellitus (ICD-10 - while sick and not E11.649) eating well as these will likely cause low blood glucose. -- monitor BG and if BG low may drink 4 oz of orange juice or glass of milk or eat a peice of candy. Jun, Weakness (ICD-10 - R53.1) Jun, Benign essential Maintian a low HTN (ICD-10 - I10) salt DASH diet, exercise, weight loss and decrease stress recommended. Keep BP log and will review next visit. If blood pressure consistently above 140/90 return to clinic for adjustment of meds. Try to quit smoking if you currently smoke. Decrease caffeine intake if possible. -- will have labs with Jun, History of recent Fall precautions fall (ICD-10 - discussed Z91.81) -Be careful and try to eliminate rugs, throws, pets , and dim lighting. -Take frequent breaks if you feel tired - Move slowly and take a look at your surrounding before you get up and move. - use walker or cane if you need. Jun, Need for assistance due to unsteady gait (ICD-10 - R26.89) Jun, Other Total time spen t by provider dur ing this virtual vi sit was approx 15 minutes. Also, time was spent counseling and coordinating ca re including but n ot limited to discussion of t est results, diagnostic or treatment recommendations , prognosis, risk s and benefits of management options, instructions, education, compliance and or risk reduction. -- Medications reviewed and updated. PLAN OF TREATMENT Medication Medication Name Sig [...] directed SC twice daily for 90 days Treatment Notes Assessment Notes Clinical Notes Fever, unspecified fever cause symptomatic treatment -increa se fluids, vitamin c, increase moisture in air with humidier, and avoid other persons with colds to prevent further spread during the infective period usually first 3-4 days.-a viral illness is an acute and contagious viral infection of the upper respiratory tract that is most often caused by many different viruses and sometimes bacteria. viral illness often lasts 7-14 days and will resolve on its\'s one and treatment is usually with supportive care to help alleviate symptoms. Patient told to call physician or return to clinic if symptoms worsen if fever above 104F or fever of T 100.4F lasting longer than 3 days, increased sore throat or persistent cough with increasing thick or yellow sputum or with any problems. Body aches tylenol as needed max of 2000mg a day. Contact with and (suspected) get plenty of rest, vitamin C, D 3, exposure to other viral zinc to help boost your immune communicable diseases system. As you are getting better, your immune systems has cleared the virus , and the rest is your body healing. Treat your symptoms or any fever with otc medications as directed. Get plenty of rest and stay well hydrated with fluids.__ recommend to monitor temperature control with tylenol fever is anything above 100.4 F, monitor your oxygen saturation with a pulse oximeter call clinic or go to ER if oxygen less than 90 %get plenty of rest, vitamin C, D 3, zinc to help boost your immune system. As you are getting better, your immune systems has cleared the virus , and the rest is your body healing. Treat your symptoms or any fever with otc medications as directed. Get plenty of rest and stay well hydrated with fluids.-- recommend to monitor temperature control with tyelnol fever is anything above 100.4 F, monitor your oxygen saturation with a pulse oximeter call clinic or go to ER if oxygen less than 90 %discussed sometimes testing may be too early and may result in false negatives so need to be symptoms free and quarantine until results negative and symptom free for at least 72 hours or quarantine for 14 days to be safe. Hypoglycemic episode in patient Patient advised to hold glim eperide with diabetes mellitus and pioglitazone while sick and not eating well as these will likely cause low blood glucose.-- monitor BG and if BG low may drink 4 oz of orange juice or glass of milk or eat a peice of candy. Benign essential HTN Maintian a low salt DASH diet, exercise, weight loss and decrease stress recommended. Keep BP log and will review next visit. If blood pressure consistently above 140/90 return to clinic for adjustment of meds. Try to quit smoking if you currently smoke. Decrease caffeine intake if possible.-- will have labs with History of recent fall Fall precautions discussed-Be careful and try to eliminate rugs, throws, pets , and dim lighting.-Take frequent breaks if you feel tired- Move slowly and take a look at your surrounding before you get up and move.- use walker or cane if you need. Treatment Notes Test Name Order Date Inpatient 2020-06-12 Next Appt Details prn Reason: Provider Name:Genet Díaz, 2020-06-21 03:0 0:00 PM, [address], [address], [place], [address], Insurance Providers Payer Name Payer Payer Insured Patient Coverage Coverage End Address Phone Name Relationship to Start Date Agusto e Insured [facility] [phone] Roseann Jack [address] [id number] [id number] [place] [phone]
--- OUTSIDE RECORDS SUMMARY | 2020-06-28 18:59 | XMS REPORT | Continuity of Care Document ---
:1940 Author Organization [facility] t Address [address] [place] [address] Care Team Providers Name Role Phone Unavailable [...] Mesylate 8-18 [facility]: Mem[facility] 00 [facility] Lancets Lancets 2018-07 Yes Na Díaz as [facility] 0-29 directed [facility] - 00:[facility]: Memoria 00 [facility] blood blood 2018-07- No Na Díaz as [facility] Glucose Glucose 0-29 10-23 directed Luke s - Test Strips Test Strips 00:00: 00:00 Memoria 00 :00 [facility] Allopurinol Allopurinol 2018-07- No Na D[facility]az as [facility] 0-29 04-26 directed [facility] - 00:00: 00:00 Memoria 00 :00 [facility] Glucometer Glucometer 2018-07- No Na Díaz one [facility] 0-29 04-26 [facility] - 00:00: 00:00 Memoria 00 :00 [facility] Pioglitazon Pioglitazon Yes Na Díaz [address] [facility] e HCl e HCl 2-25 [facility] - 00:00: Memoria 00 [facility] Micardis Micardis 2017-07 Yes Na Díaz [address] [facility] HCT HCT 1-26 [facility] - 00:00: [facility] 00 [facility] Magnesium Magnesium Yes Na Díaz as [facility] Chloride-Ca Chloride-Ca 5-10 directed [facility] - lcium lcium 00:00: Memoria 00 [facility] Cholecalcif Cholecalcif Yes Na Díaz [address] [facility] philipp philipp 5-10 [facility] - 00:00: [facility] 00 [facility] Wellbutrin Wellbutrin Yes Na Díaz [address] [facility] Accu-Chek Accu-Chek Yes Na Díaz as [facility] Estephania Plus Estephania Plus directed [facility] ent [facility] Carvedilol Carvedilol Yes Na Díaz twice [facility] daily [facility] Cetirizine Cetirizine Yes Na Díaz [address] [facility] HCl HCl [facility] Simvastatin Simvastatin Yes Na Díaz [address] [facility] in the [facility] - evening [facility] Ranitidine Ranitidine Yes Na Díaz [address] [facility] HCl HCl as needed [facility] ent [facility] Wellbutrin Wellbutrin Yes Na Díaz [address] [facility] SR SR in the [facility] - morning [facility] Tradjenta Tradjenta Yes Na Díaz [address] [facility] Gabapentin Gabapentin Yes Na Díaz [address] [facility] Glimepiride Glimepiride Yes Na Díaz [address] [facility] BuPROPion BuPROPion Yes Na Díaz TAKE [address] [facility] HCl ER (SR) HCl ER (SR) TABLET BY [facility] MOUTH ONCE [facility] DAYS Trulicity Trulicity 2019- No Na Díaz INJECT [address] [facility] 10-15 DOSE [facility] - 00:00 SUBCUTANEO Memoria :00 USLY ONCE l A WEEK [facility] ent Clinics Procedures This patient has no known procedures. Encounters Start End Encounter Admission Attending Care Care Encounter Source Date/Time Date/Time Type Type Clinicians Facility Department ID 2020-06-22 2020-06-22 Outpatient [facility] [id number] 2020-06-21 2020-06-21 Outpatient [facility] [id number] [facility] 2020-06-08 2020-06-08 Outpatient [facility] [id number] [facility] 2020-06-08 2020-06-08 Outpatient [facility] [id number] [facility] 2020-06-06 2020-06-06 Outpatient [facility]MLC [facility] [id number] [facility] 2020-02-23 2020-02-23 [facility] [id number] [facility] 09:02:00 09:02:00 t [facility] l Medicine Outpati ent Clinics 2020-02-04 2020-02-04 [facility] [id number] [address] 15:00:00 15:00:00 t [employer] [facility] Medicine Outpati ent Clinics 2020-01-23 2020-01-23 [facility] [id number] 13:45:00 13:45:00 t [employer] - [facility] l Medicine Outpati ent Clinics 2019-10-29 2019-10-29 [facility] [id number] 10:40:00 10:40:00 [place] [employer] [facility] - [facility] l Medicine Outpati ent Clinics 2019-08-05 2019-08-05 [facility] [id number] 08:00:00 08:00:00 t [employer] [facility] l Medicine Outpati ent Clinics 2019-07-24 2019-07-24 [facility] [id number] 16:14:00 16:14:00 t [employer] - Drive [facility] Medicine Outpati ent Clinics 2019-05-05 2019-05-05 [facility] [id number] 13:40:00 13:40:00 [place] [employer] - Drive [facility] Medicine Outpati ent Clinics 2019-02-02 2019-02-02 [facility] [id number] 10:00:00 10:00:00 t Bone Bone and [facility] - and Joint [facility] 2019-01-21 2019-01-21 [facility] [id number] 11:00:00 11:00:00 t [place] [employer] [facility] Medicine Outpati ent Clinics 2018-12-23 2018-12-23 [facility] [id number] 10:23:00 10:23:00 [place] [employer] [facility] Medicine Outpati ent Clinics 2018-09-17 2018-09-17 [facility] [id number] 10:35:00 10:35:00 t [place] [employer] - [employer] [facility] Medicine Outpati ent Clinics 2018-09-09 2018-09-09 [facility] [id number] 10:45:00 10:45:00 t [place] [employer] [facility] Medicine Outpati ent Clinics 2018-08-12 2018-08-12 [facility] [id number] 10:30:00 10:30:00 t [place] [employer] - Drive [facility] Medicine Outpati ent Clinics 2018-02-19 2018-02-19 [facility] [id number] 09:30:00 09:30:00 t [place] [employer] [facility] Medicine Outpati ent Clinics 2017-11-19 2017-11-19 [facility] [id number] 11:00:00 11:00:00 t [place] [employer] - Drive [facility] Medicine Outpati ent Clinics Results This patient has no known results.
--- OUTSIDE RECORDS SUMMARY | 2020-06-28 18:59 | XMS REPORT ---
:1940 Author Organization [facility] Address [address], [address] [place] [address] Care Team Providers Name Role Phone Díaz Unavailable [phone] PROBLEMS Type Condition ICD9-CM [id number] Onset Condition SNOMED Code Notes Code Code Dates Status Problem Diabetes E11.9 Active 845227631 Problem Controlled type 2 E11.9 Active 616355968 diabetes mellitus without complication, without long-term current use of insulin Problem Vitamin D E55.9 Active 46762564 deficiency Problem Hyperlipidemia E78.5 Active 57735645 Problem Other chronic pain G89.29 Active 14323265 Problem Current mild F32.0 Active 33802098 episode of major depressive disorder without prior episode Problem Neuropathy G62.9 Active 649075500 Problem Hyperglycemia R73.9 Active 72638951 Problem 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 653170992 with chronic renal failure Problem Seasonal allergies J30.2 Active 864108316 Problem CKD (chronic N18.4 Active 992756402 kidney disease) stage 4, GFR 15-29 ml/min Problem Chronic kidney N18.4 Active 622474475 disease, stage 4 (severe) Problem Gastroesophageal K21.9 Active 879741418 reflux disease, esophagitis presence not specified Problem 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 osteoarthritis involving multiple joints Problem Benign prostatic N40.0 Active 941142296 hyperplasia, unspecified whether lower urinary tract symptoms present Problem Primary M17.11 Active 848750725483037 osteoarthritis of right knee Problem Primary M17.12 Active 031088380183705 osteoarthritis of left knee Problem Need for R26.89 Active 268267723 assistance due to unsteady gait Problem CKD (chronic N18.3 Active 168332026 kidney disease) stage 3, GFR 30-59 ml/min Problem Unsteady gait R26.81 Active 82431705 Problem Benign essential I10 Active 14142263 HTN Problem Obesity (BMI E66.9 Active 917510920 30-39.9) Problem Type 2 diabetes E11.65 Active 08893560 mellitus with hyperglycemia 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 Problem Supplemental Z99.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 868143319954 oxygen dependent Problem Hypoglycemic E11.649 Active 986477597 episode in patient with diabetes mellitus ALLERGIES No Known Allergies ENCOUNTERS from 1940 to 2020-06-26 Encounter Location Date Provider Diagnosis [facility] [address] [facility] Jun, Genet Díaz Ot er viral pneumonia Family Medicine [address], [address] ; [address] [place] [address] diabetes melli tus with hyperglycemia E 11.65 ; COVID-19 U07.1 ; Anemia associated with chronic renal failure D 63.1 ; Benign essentia l HTN I10 ; CKD (central sterile technician cecilia kidney disease) stage 4, GFR 15-29 ml /min N18.4 ; Need fo r assistance due to unsteady gait R 26.89 ; Weakness R53.1 ; intermediate accountant (current) use of insulin Z79.4 a nd Supplemental ox ygen dependent Z99.8 1 IMMUNIZATIONS No Information SOCIAL HISTORY Tobacco Use: [...] 250 lbs Jun, BMI 35.87 kg/m2 Jun, Oximetry 95 % Jun, MEDICATIONS Medication SIG (Take, Route, Notes Start Date End Date Status Frequency, Duration) Pioglitazone HCl 15 MG 1 tablet Orally Once a Aug, Active day for 30 day(s) Lancets - as directed SC twice Acti ve daily for 90 days Lantus SoloStar 100 10 units and increase by Jun, Active UNIT/ML 2 units every 2 days until fasting glucose less 100 ( max of 30 units daily) Subcutaneous once daily for 30 days blood Glucose Test Strips as directed twice a day Active for 90 days Magnesium Chloride-Calcium as directed Orally November, Active 64-106 MG Allopurinol 100 MG as directed Orally once Active a day for 90 days Cetirizine HCl 10 MG 1 tablet Orally Once a Active day for 90 day(s) Wellbutrin SR 100 MG 1 tablet in the morning Active Orally Once a day for 90 days Ranitidine HCl 150 MG 1 tablet as needed Active Orally Twice a day for 90 days Cholecalciferol 5000 UNIT 1 capsule Orally Once a November, Active day for 30 day(s) Trulicity 1.5 MG/0.5ML INJECT 1 DOSE Active SUBCUTANEOUSLY ONCE A WEEK for 90 days Gabapentin 300 MG 1 capsule Orally Once a Active day for 90 days Accu-Chek Estephania Plus - as directed In Vitro Active twice a day for 90 Carvedilol 12.5 MG Take 1 tablet by mouth Active twice daily for 90 Glucometer n/s one n/s use as directed Active for 90 days Micardis HCT 80-12.5 MG 1 tablet Orally Once a Active day for 90 days Wellbutrin SR 100 MG 1 tablet in the morning Active Orally Once a day for 90 Doxazosin Mesylate 1 MG 1 tablet Orally Once a Feb, 0 Active day for 90 days Trulicity 1.5 MG/0.5ML INJECT ONE DOSE UNDER Active THE SKIN ONCE A WEEK for 28 BuPROPion HCl ER (SR) 100 TAKE 1 TABLET BY MOUTH Active MG ONCE DAILY IN THE MORNING FOR 90 DAYS for 90 BD Pen Needle Luisa 2nd Gen as directed SC once Jun, 0 Active 32G X 4 MM daily for 90 days Simvastatin 20 MG 1 tablet in the evening Active Orally Once a day for 90 day(s) Carvedilol 12.5 MG twice daily Orally daily Active for 90 days Glimepiride 4 MG Take 1 tablet by mouth Active twice daily for 90 days for 90 Accu-Chek Estephania Plus - as directed In Vitro Active twice a day for 90 day Glimepiride 4 MG 1 tablet Orally twice a Active day for 90 day(s) Pioglitazone HCl 15 MG 1 tablet Orally Once a Active day for 30 day(s) Tradjenta 5 MG 1 tablet Orally Once a Active day for 90 days Basaglar KwikPen 100 10 units daily and Jun, Active UNIT/ML titrate up 2 units every 2 days until FBG less 100 max of 30 units daily Subcutaneous once daily for 90 days PROCEDURES No Information RESULTS No Results REASON FOR VISIT 3 month f/u + [facility], s/p hospitalization COVID PNA/ hypoxia on supplemental oxygen, weak MEDICAL (GENERAL) HISTORY Type Description Date Medical History Diabetes Medical History Benign essential HTN Medical History Hyperlipidemia Medical History Vitamin D deficiency Medical History nsaids-yes Surgical History No Surgical history information Goals Section No Information Health Concerns No Information MEDICAL EQUIPMENT No Information MENTAL STATUS No Information FUNCTIONAL STATUS No Information ASSESSMENTS Encounter Date Diagnosis Assessment Treatment Notes Treatment Notes Clinical Notes Jun, Other viral get plenty of rest, pneumonia (ICD-10 vitamin C, D 3, zinc - J12.89) to help boost your immune system. As [...] quarantine for 14 days to be safe. quarantine 06/08/2020 hospitalization 06/12/2020-06/18/2020 Jun, Type 2 diabetes - Patient started on mellitus with Basaglar insulin hyperglycemia today (ICD-10 - E11.65) - Patient counseled to monitor blood glucose daily fasting and 2 hours after lunch and dinner and keep log of blood glucose . - Need to titrate insulin up 2 units every 2 days until fasting blood sugars consitstently less than 100 units. - Keep fasting blood glucose and 2 hours after lunch and dinner blood glucose should be less than 180 approximately 2 hours after meal s. - Maintain low carb 1800 ADA diet. Avoid sodas, juices and remember portion control. Take your medication as prescribed. Monitor your blood sugar at home as directed and keep a log to bring back with you to your next visit for review. Schedule your annual diabetic eye exam with your eye doctor to screen for diabetic retinopathy. Check your feet daily to make sure you have no open wounds. Jun, COVID-19 (ICD-10 - get plenty of rest, U07.1) vitamin C, D 3, zinc to help [...] for 14 days to be safe. Jun, Anemia associated Will monitor cbc, with chronic renal maintain well failure (ICD-10 - balanced diet, take D63.1) MV with iron or iron supplement as directed with vitamin C for better absorption of iron. iron rich foods include beef, spinach, liver, dark leafy greens. call physician if you notice increase fatigue, paleness, dark black stools or blood in stool. -- cbc stable discussed anemia likely due to anemia of ckd stage IV, f/u with nephro Jun, Benign essential Maintian a low salt HTN (ICD-10 - I10) DASH diet, exercise, weight loss and decrease stress recommended. Keep BP log and will review next visit. If blood pressure consistently above 140/90 return to clinic for adjustment of meds. Try to quit smoking if you currently smoke. Decrease caffeine intake if possible. -- will have labs with Jun, CKD (chronic will monitor kidney kidney disease) function. - Avoid stage 4, GFR 15-29 NSAIDs ( such as ml/min (ICD-10 - ibuprofen, motrin, N18.4) aleive) - Hydrate your kidneys by drinking plenty of water. f/u with Jun, Need for Fall precautions assistance due to discussed unsteady gait -Be careful and try (ICD-10 - R26.89) to eliminate rugs, throws, pets , and dim lighting. -Take frequent breaks if you feel tired - Move slowly and take a look at your surrounding before you get up and move. Jun, Weakness (ICD-10 - will order HH with R53.1) PT and OT along with custodial. Jun, intermediate accountant (current) use of insulin (ICD-10 - Z79.4) Jun, Supplemental oxygen dependent (ICD-10 - Z99.81) Jun, Other Total time spen t by provider during this virtual visit w as approx 30 minutes. Also, time was spent counseling and coordinating ca re including but n ot limited to discussion of test results, diagnostic or treatment recommendations , prognosis, risk s and benefits of management options, instructions, education, compliance and or risk reduction. -- Medications reviewed and updated. -- hospital /previous labs/ records reviewe d labs imaging an d plan discussed with patient al l questions answered to bes t of my knowledge . medications reviewed, documented and reconciled. -- Patient is very frail and weak, especially s/p hospital discharge now o n home oxygen 3L NC and is als o weak and has covid also. Patient has multiple comorbidities, chronic disease s that are heavy burden on caregiver at home. Patient will benefit fr om custodial , physical therap y and occupationa l therapy to educate, strenghten patient's muscles, decrea se risk of falls, and allow patie nt to improve thei r physical and mental health a nd perform daily activities safely. PLAN OF TREATMENT Medication Medication Name Sig Start Date Stop Date Micardis HCT 80-12.5 MG 1 tablet Orally Once a day for 90 days Basaglar KwikPen 100 UNIT/ML 10 units daily and titrate up 2 Jun, units every 2 days until FBG less 100 max of 30 units daily Subcutaneous once daily for 90 days Lantus SoloStar 100 UNIT/ML 10 units and increase by 2 units Jun, every 2 days until fasting glucose less 100 ( max of 30 units daily) Subcutaneous once daily for 30 days Carvedilol 12.5 MG twice daily Orally daily for 90 days BD Pen Needle Luisa 2nd Gen 32G as directed SC once daily for Jun, X 4 MM days Treatment Notes Assessment Notes Clinical Notes Other viral pneumonia get plenty of rest, vitamin C, D [...] or quarantine for 14 days to be safe.quarantine 06/08/2020hospitalization 06/12/2020-06/18/2020 Type 2 diabetes mellitus with - Patient started on Basaglar hyperglycemia insulin today- Patient counseled to monitor blood glucose daily fasting and 2 hours after lunch and dinner and keep log of blood glucose.- Need to titrate insulin up 2 units every 2 days until fasting blood sugars consitstently less than 100 units.- Keep fasting blood glucose and 2 hours after lunch and dinner blood glucose should be less than 180 approximately 2 hours after meals.- Maintain low carb 1800 ADA diet. Avoid sodas, juices and remember portion control. Take your medication as prescribed. Monitor your blood sugar at home as directed and keep a log to bring back with you to your next visit for review. Schedule your annual diabetic eye exam with your eye doctor to screen for diabetic retinopathy. Check your feet daily to make sure you have no open wounds. COVID-19 get plenty of rest, vitamin C, D [...] quarantine for 14 days to be safe. Anemia associated with chronic Will monitor cbc, maintain we ll renal failure balanced diet, take MV with iron or iron supplement as directed with vitamin C for better absorption of iron. iron rich foods include beef, spinach, liver, dark leafy greens. call physician if you notice increase fatigue, paleness, dark black stools or blood in stool.-- cbc stable discussed anemia likely due to anemia of ckd stage IV, f/u with nephro Benign essential HTN Maintian a low salt DASH diet, exercise, weight loss and decrease stress recommended. Keep BP log and will review next visit. If blood pressure consistently above 140/90 return to clinic for adjustment of meds. Try to quit smoking if you currently smoke. Decrease caffeine intake if possible.-- will have labs with CKD (chronic kidney disease) stage will monitor kidney funct ion. - 4, GFR 15-29 ml/min Avoid NSAIDs ( such as ibuprofen, motrin, aleive) - Hydrate your kidneys by drinking plenty of water.f/u with Need for assistance due to unsteady Fall precautions discuss ed-Be gait careful and try to eliminate rugs, throws, pets , and dim lighting.-Take frequent breaks if you feel tired- Move slowly and take a look at your surrounding before you get up and move. Weakness will order HH with PT and OT along with custodial. Next Appt Details 1 WEEK THV Reason: Insurance Providers Payer Name Payer Payer Insured Patient Coverage Coverage End Address Phone Name Relationship to Start Date Agusto e Insured [employer] [phone] Roseann Jack self [id number] [place] [address]
--- OUTSIDE RECORDS SUMMARY | 2020-06-28 18:59 | XMS REPORT ---
:1940 Author Organization [facility] Address [address] [place], [address] [place] [address] Care Team Providers Name Role Phone Díaz Unavailable [phone] PROBLEMS Type Condition ICD9-CM [id number] Onset Condition SNOMED Code Notes Code Code Dates Status Problem Diabetes E11.9 Active 055810861 Problem Controlled type 2 E11.9 Active 749126591 diabetes mellitus without complication, without long-term current use of insulin Problem Vitamin D E55.9 Active 77597929 deficiency Problem Hyperlipidemia E78.5 Active 68407113 Problem Other chronic pain G89.29 Active 55120813 Problem Current mild F32.0 Active 09762224 episode of major depressive disorder without prior episode Problem Neuropathy G62.9 Active 449546898 Problem Hyperglycemia R73.9 Active 55245776 Problem 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 648013559 with chronic renal failure Problem Seasonal allergies J30.2 Active 691829001 Problem CKD (chronic N18.4 Active 100278926 kidney disease) stage 4, GFR 15-29 ml/min Problem Chronic kidney N18.4 Active 023834916 disease, stage 4 (severe) Problem Gastroesophageal K21.9 Active 941478415 reflux disease, esophagitis presence not specified Problem 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 Active 311887193 osteoarthritis involving multiple joints Problem Benign prostatic N40.0 Active 155981411 hyperplasia, unspecified whether lower urinary tract symptoms present Problem Primary M17.11 Active 786842485968092 osteoarthritis of right knee Problem Primary M17.12 Active 957380381602425 osteoarthritis of left knee Problem Need for R26.89 Active 030354732 assistance due to unsteady gait Problem CKD (chronic N18.3 Active 211402940 kidney disease) stage 3, GFR 30-59 ml/min Problem Unsteady gait R26.81 Active 05310840 Problem Benign essential I10 Active 76286552 HTN Problem Obesity (BMI E66.9 Active 044594889 30-39.9) Problem Type 2 diabetes E11.65 Active 25745716 mellitus with hyperglycemia 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 073456557 (current) use of insulin Problem Supplemental Z99.81 Active 798154636096 oxygen dependent Problem Hypoglycemic E11.649 Active 777185805 episode in patient with diabetes mellitus ALLERGIES No Known Allergies ENCOUNTERS from 1940 to 2020-06-22 Encounter Location Date Provider Diagnosis [facility] [address], [place] [address] IMMUNIZATIONS No Information SOCIAL HISTORY Tobacco Use: [...] Aug, 2018 Active day for 30 day(s) Lancets - [...] 2nd Gen as directed SC once Jun, Active 32G X 4 MM daily for [...] Information RESULTS No Results REASON FOR VISIT Insulin not covered. MEDICAL (GENERAL) HISTORY Type Description Date Medical [...] 32G as directed SC once daily for 90 Jun, X 4 MM days Insurance Providers Payer Name Payer Payer Insured Patient Coverage Coverage End Address Phone Name Relationship to Start Date Agusto e Insured [phone] Roseann Jack [address] [address] [facility] [address] [place] [address]
[2020-06-28 19:30] LABS: Absolute Lymphocytes (CBC) 0.7 K/uL (0.7-4.9); Basophils % 0.6 % (0-1.3); Hematocrit 29.2 % (39.6-49.0); Lymphocytes % 4.2 % (15.3-44.8); MPV 10.4 fL (7.6-11.3); RBC Red Blood Cell Count 3.21 M/uL (4.33-5.43)
[2020-06-28 19:37] LABS: Protime INR 1.35
[2020-06-28] MEDS ORDERED: FUROSEMIDE 40 MG/4 ML VIAL ONE (19:46)
[2020-06-28 19:55] LABS: ALT/SGPT 20 U/L (12-78); AST/SGOT 9 U/L (15-37); Alkaline Phosphatase 101 U/L (45-117); BUN Blood Urea Nitrogen 42 mg/dL (7-18); Bicarbonate 27 mmol/L (21-32); Bilirubin Direct 0.1 mg/dL (0-0.2); Bilirubin Total 0.3 mg/dL (0.2-1.0); Magnesium 2.2 mg/dL (1.8-2.4); NT PRO-BNP 906 pg/mL (<450); Protein, Total 6.7 g/dL (6.4-8.2); Sodium Level 134 mmol/L (136-145); Troponin (Emerg Dept Use Only) < 0.02 ng/mL (0.0-0.045)
[2020-06-28 20:00] LABS: Glucose Level 514 mg/dL (74-106)
--- NOTE | 2020-06-28 20:10 | RAD REPORT ---
EXAM DESCRIPTION: RAD - Chest Single View - 06/28/2020 7:43 pm CLINICAL HISTORY: edema, COVID positive COMPARISON: June 12 TECHNIQUE: AP portable chest image was obtained 06/28/2020 7:43 pm . FINDINGS: Lung volumes are low. Patchy opacification present in both lung ramires, worse in the later al left base. Pattern would be consistent with COVID-19 pneumonia. No significant pulmonary edema. He art and vasculature are normal. No measurable pleural effusion and no pneumothorax. No acute bony abn ormality seen. No acute aortic findings suspected. IMPRESSION: Bilateral patchy infiltrates worse in the left base. Pattern would be consistent with a bilateral pneumonia including COVID-19 pneumonia etiology.
[2020-06-28 20:12] LABS: Blood Morphology Comment NOT SEEN (NOT SEEN); Platelet Estimate DECR; White Blood Cell Scan OK (OK)
--- NOTE | 2020-06-28 20:37 | ER ---
Nurse's Notes [facility] Name: Brett Jack Age: 80 yrs Sex: Male : 1940 Arrival Date: 06/28/2020 Time: 19:04 Bed 3 Private MD: Diagnosis: Pulmonary edema;Unspecified combined systolic (congestive) and diastolic (congestive) heart failure Presentation: 06/28 19:06 Coronavirus screen: Client reports previous positive COVID test result. Ebola Screen: rv No symptoms or risks identified at this time. Initial Sepsis Screen: Does the patient meet any 2 criteria? No. Patient's initial sepsis screen is negative. Does the patient have a suspected source of infection? No. Patient's initial sepsis screen is negative. Risk Assessment: Do you want to hurt yourself or someone else? Patient reports no desire to harm self or others. Onset of symptoms was June 28, 2020. 19:06 Method Of Arrival: EMS: [facility] rv 19:06 Acuity: SAM 3 rv 19:06 Chief complaint: EMS states: Reports pt reported his blood sugars have been running ea high all day today and he has not been able to bring it down, he reported to EMS he discontinued taking prednisone per polymer chemist. Pt reports he has been taking all the medication he was discharged with except for lasix, states he took his first dose today. Triage Assessment: 19:08 General: Appears comfortable, Behavior is calm, cooperative. Pain: Denies pain. rv Historical: - Allergies: 19:07 No Known Allergies; rv - PMHx: 19:07 Diabetes - NIDDM; Hypertension; rv - Immunization history:: Adult Immunizations up to date. - Social history:: Smoking status: Patient denies any tobacco usage or history of. Screenin:08 Abuse screen: Denies threats or abuse. Denies injuries from another. Nutritional rv screening: No deficits noted. Tuberculosis screening: No symptoms or risk factors identified. Fall Risk None identified. Assessment: 19:10 General: Appears uncomfortable, Behavior is appropriate for age. Pain: Denies pain. ea Neuro: Level of Consciousness is awake, alert, obeys commands, Oriented to person, place, time, situation. Cardiovascular: Patient's skin is warm and dry. Cardiovascular: +2 pitting edema noted to cedric lower extremities. Respiratory: Airway is patent Respiratory effort is even, unlabored, Respiratory pattern is regular, symmetrical. Derm: Skin is pink, warm \T\ dry. 20:30 Reassessment: Patient and/or family updated on plan of care and expected duration. Pain ea level reassessed. Patient is alert, oriented x 3, equal unlabored respirations, skin warm/dry/pink. 21:30 Reassessment: Patient and/or family updated on plan of care and expected duration. Pain ea level reassessed. Patient is alert, oriented x 3, equal unlabored respirations, skin warm/dry/pink. Awaiting on lab results. 22:49 Reassessment: Patient and/or family updated on plan of care and expected duration. Pain ea level reassessed. Patient is alert, oriented x 3, equal unlabored respirations, skin warm/dry/pink. Report given to receiving nurse on fourth floor. Pt continues to be on O2 at 4L, pt tolerating well. 23:11 Reassessment: Patient and/or family updated on plan of care and expected duration. Pain ea level reassessed. Patient is alert, oriented x 3, equal unlabored respirations, skin warm/dry/pink. Pt remains on O2 at 4L per nasal cannula. Pt admitted to fourth floor, left via stretcher, tolerating well. Vital Signs: 19:06 BP 157 / 66; Pulse 79; Resp 24; Pulse Ox 97% on R/A; rv 19:08 Temp 97.7(O); rv 20:48 BP 145 / 69; Pulse 78; Resp 18; Pulse Ox 97% ; rv 21:30 BP 132 / 81; Pulse 87; Resp 19; Pulse Ox 98% on R/A; ea 22:50 BP 138 / 85; Pulse 72; Resp 18; Temp 97.5; ea ED Course: 19:04 Patient arrived in ED. rv 19:05 Arjun Nieves MD is Attending Physician. will 19:07 Triage completed. rv 19:08 Arjun Perez PA is PHCP. cp 19:09 Nir Lin, MOHAN is Primary Nurse. rv 19:09 Arm band placed on right wrist. rv 19:10 Patient has correct armband on for positive identification. Pulse ox on. NIBP on. rv 19:27 Inserted saline lock: 20 gauge in right antecubital area, using aseptic technique. ea Blood collected. 19:41 XRAY Chest (1 view) In Process Unspecified. EDMS 20:36 Zachary Menchaca MD is Hospitalizing Provider. cp 22:48 No provider procedures requiring assistance completed. Patient admitted, IV remains in ea place. Administered Medications: 19:39 Drug: Lasix 40 mg Route: IVP; Site: right antecubital; ea 22:52 Follow up: Response: No adverse reaction ea 20:30 Drug: Insulin Regular Human 10 units {Co-Signature: ama (Nir Lin RN).} Route: ea IVP; Site: right antecubital; 23:12 Follow up: Response: No adverse reaction ea Outcome: 20:37 Decision to Hospitalize by Provider. cp 22:48 Condition: stable ea 22:48 Instructed on the need for admit, Demonstrated understanding of instructions. 23:10 Admitted to Med/surg accompanied by tech, via stretcher, with oxygen, with chart, ea Report called to Receiving nurse on fourth floor 23:12 Patient left the ED. ea Signatures: Dispatcher [employer] EDSC Arjun Nieves MD MD cha Page, Corey, PA PA Ольга Barber, RN RN Nir Armendariz RN RN ama serrato
--- NOTE | 2020-06-28 20:38 | EDPHYS ---
Physician Documentation [facility] Name: Brett Jack Age: 80 yrs Sex: Male : 1940 Arrival Date: 06/28/2020 Time: 19:04 Bed 3 Private MD: ED Physician Arjun Nieevs HPI: 06/28 19:25 This 80 yrs old Male presents to ER via EMS with complaints of High Blood cp Sugar - covid positive, Pedal Edema - both. 19:25 The patient or guardian reports hyperglycemia, that was potentially precipitated by cp currently taking prescribed prednisone. Onset: The symptoms/episode began/occurred today. Associated signs and symptoms: Pertinent positives: lower extremity edema. Historical: - Allergies: 19:07 No Known Allergies; rv - PMHx: 19:07 Diabetes - NIDDM; Hypertension; rv - Immunization history:: Adult Immunizations up to date. - Social history:: Smoking status: Patient denies any tobacco usage or history of. ROS: 19:30 Constitutional: Negative for body aches, chills, fever, poor PO intake. cp 19:30 Eyes: Negative for injury, pain, redness, and discharge. cp 19:30 ENT: Negative for ear pain, sore throat, difficulty swallowing, difficulty handling secretions. 19:30 Cardiovascular: Positive for edema, Negative for chest pain, palpitations. 19:30 Respiratory: Positive for shortness of breath, on exertion. 19:30 Abdomen/GI: Negative for abdominal pain, nausea, vomiting, and diarrhea. 19:30 Neuro: Negative for altered mental status, headache, weakness. 19:30 All other systems are negative. Exam: 19:35 Constitutional: The patient appears in no acute distress, alert, awake, cp non-diaphoretic, non-toxic, well developed, well nourished. 19:35 Head/Face: Normocephalic, atraumatic. cp 19:35 Eyes: Periorbital structures: appear normal, Conjunctiva: normal, no exudate, no injection, Sclera: no appreciated abnormality, Lids and lashes: appear normal, bilaterally. 19:35 ENT: External ear(s): are unremarkable, Nose: is normal, Mouth: Lips: moist, Oral mucosa: moist, Posterior pharynx: Airway: no evidence of obstruction, patent. 19:35 Neck: ROM/movement: is normal, is supple, without pain, no range of motions limitations. 19:35 Chest/axilla: Inspection: normal, Palpation: is normal, no crepitus, no tenderness. 19:35 Cardiovascular: Rate: normal, Rhythm: regular, Edema: pedal edema, that is moderate, JVD: is not appreciated. 19:35 Respiratory: the patient does not display signs of respiratory distress, Respirations: shallow respirations, that is mild, Breath sounds: decreased breath sounds, that are mild, diffuse. 19:35 Abdomen/GI: Inspection: abdomen appears normal, Bowel sounds: active, all quadrants, Palpation: abdomen is soft and non-tender, in all quadrants. 19:35 Back: pain, is absent, ROM is normal. 19:35 Skin: no rash present. 19:35 Neuro: Orientation: to person, place \T\ time. Mentation: is normal, Motor: moves all fours, strength is normal. 19:50 ECG was reviewed by the Attending Physician. cp Vital Signs: 19:06 BP 157 / 66; Pulse 79; Resp 24; Pulse Ox 97% on R/A; rv 19:08 Temp 97.7(O); rv 20:48 BP 145 / 69; Pulse 78; Resp 18; Pulse Ox 97% ; rv 21:30 BP 132 / 81; Pulse 87; Resp 19; Pulse Ox 98% on R/A; ea 22:50 BP 138 / 85; Pulse 72; Resp 18; Temp 97.5; ea MDM: 19:05 Patient medically screened. [facility] 20:30 Data reviewed: vital signs, nurses notes, lab test result(s), EKG, radiologic studies, cp plain films, and as a result, I will admit patient. 20:30 Test interpretation: by ED physician or midlevel provider: ECG. Counseling: I had a cp detailed discussion with the patient and/or guardian regarding: the historical points, exam findings, and any diagnostic results supporting the discharge/admit diagnosis, lab results, radiology results. 20:35 Physician consultation: Abelardo LYONS was called at 20:30, was contacted at 20:30, cp regarding admission, to the telemetry unit. patient's condition. 06/28 19:19 Order name: Basic Metabolic Panel; Complete Time: 20:16 cp 06/28 20:16 Interpretation: Normal except: NA 134; GLUC 514; BUN 42; CRE 1.86; GFR 35. 06/28 19:19 Order name: CBC with Diff; Complete Time: 20:16 06/28 20:16 Interpretation: Normal except: WBC 17.7; RBC 3.21; HGB 9.3; HCT 29.2; MCHC 31.7; PLT cp 148; RDW 15.9; MPV 10.4; JOAO% 90.8; LYM% 4.2; NEUT A 16.1. 06/28 19:19 Order name: LFT's; Complete Time: 20:16 cp 06/28 20:22 Interpretation: Normal except: AST 9; ALB 2.0; GLOB 4.7; A/G 0.4. 06/28 19:19 Order name: Magnesium; Complete Time: 20:16 06/28 19:19 Order name: NT PRO-BNP; Complete Time: 20:16 06/28 19:19 Order name: PT-INR; Complete Time: 19:45 06/28 19:19 Order name: Troponin (emerg Dept Use Only); Complete Time: 20:16 06/28 19:19 Order name: XRAY Chest (1 view); Complete Time: 20:16 06/28 19:34 Order name: Glucose, Ancillary Testing; Complete Time: 19:44 EDMS 06/28 20:13 Order name: CBC Smear Scan; Complete Time: 20:16 EDMS 06/28 21:18 Order name: COVID-19 ea 06/28 21:32 Order name: CORONAVIRUS EDLA 06/28 22:22 Order name: SARS-COV-2 RT PCR EDLA 06/28 19:19 Order name: EKG; Complete Time: 19:20 cp 06/28 19:19 Order name: Cardiac monitoring; Complete Time: 19:27 cp 06/28 19:19 Order name: EKG - Nurse/Tech; Complete Time: 19:54 cp 06/28 19:19 Order name: IV Saline Lock; Complete Time: 19:27 cp 06/28 19:19 Order name: Labs collected and sent; Complete Time: 19:27 06/28 19:19 Order name: O2 Per Protocol; Complete Time: 19:27 06/28 19:19 Order name: O2 Sat Monitoring; Complete Time: 19:27 cp 06/28 19:29 Order name: Accucheck Blood Glucose; Complete Time: 19:54 cp EC:50 Rate is 75 beats/min. Rhythm is regular. IA interval is normal. QRS interval is cp prolonged at 146 msec. QT interval is normal. T waves are Inverted in leads aVR, V2, V3. Interpreted by me. Reviewed by me. Administered Medications: 19:39 Drug: Lasix 40 mg Route: IVP; Site: right antecubital; ea 22:52 Follow up: Response: No adverse reaction ea 20:30 Drug: Insulin Regular Human 10 units {Co-Signature: rv (Nir Lin RN).} Route: ea IVP; Site: right antecubital; 23:12 Follow up: Response: No adverse reaction ea Disposition: 06/29 06:15 Co-signature as Attending Physician, Arjun Nieves MD I agree with the assessment and will plan of care. Disposition: 06/28/20 20:37 Hospitalization ordered by Zachary Menchaca for Observation. Preliminary diagnosis are Pulmonary edema, Unspecified combined systolic (congestive) and diastolic (congestive) heart failure. - Bed requested for Telemetry/MedSurg (observation). - Status is Observation. ea - Condition is Stable. - Problem is new. - Symptoms have improved. Signatures: Dispatcher [employer] Farideh Ventura RN RN dw Anderson, Corey, MD MD cha Attema, Lee, RETAIL LEASING AGENT-C RETAIL LEASING AGENT-Cla1 Arjun Perez PA PA cp Antunez, Elena, RN RN ea Vicente, Ronaldo, RN RN rv Ronaldo Vicente RN rv Corrections: (The following items were deleted from the chart) 06/28 22:25 20:37 Hospitalization Ordered by Zachary Menchaca MD for Observation. Preliminary dw diagnosis is Pulmonary edema; Unspecified combined systolic (congestive) and diastolic (congestive) heart failure. Bed requested for Telemetry/MedSurg (observation). Status is Observation. Condition is Stable. Problem is new. Symptoms have improved. cp 23:12 22:25 06/28/2020 20:37 Hospitalization Ordered by Zachary Menchaca MD for Observation. ea Preliminary diagnosis is Pulmonary edema; Unspecified combined systolic (congestive) and diastolic (congestive) heart failure. Bed requested for Telemetry/MedSurg (observation). Status is Observation. Condition is Stable. Problem is new. Symptoms have improved. dw
[2020-06-28] MEDS ORDERED: INSULIN -REGULAR HUMAN 50 UNIT/0.5 ML ML ONE (20:39)
--- NOTE | 2020-06-28 21:07 | P.HP ---
Certification for Inpatient Patient admitted to: Observation With expected LOS: <2 Midnights Patient will require the following post-hospital care: None Practitioner: I am a practitioner with admitting privileges, knowledge of patient current condition, hospital course, and medical plan of care. Services: Services provided to patient in accordance with Admission requirements found in Title 42 Section 412.3 of the Code of Federal Regulations <MarquesAbelardo - Last Filed: 06/28/20 21:01> Patient History Date of Service: 06/28/20 Primary Care Provider: Dr. Díaz, Dr. Carpenter Reason for admission: Dyspnea History of Present Illness: 80-year-old male with history of diabetes mellitus type 2, hyper tension, hyperlipidemia, chronic kidney disease presents to the emergency department for shortness of breath, swelling of the lower extremities, high blood sugar. Patient was recently admitted to the hospital for COVID overnight and discharged on home oxygen and steroids. Patient recently had his steroids discontinued by pulmonology but still on home oxygen. Patient reported that he would be and noticed lower extremity swelling and was placed on Lasix by his primary care provider but had not yet taken this. Patient's workup in the emergency department revealed stable seek ED 3, hyperglycemia to the 514, elevated BNP 906 elevated white blood cell count 17.7 with mild anemia hemoglobin 9.3 hematocrit 29.9 this is also close to patient's baseline. Patient has significant amount of bilateral pedal pitting edema. Patient does not have diagnosis of CHF, has not had echocardiogram here for review. ED provider wishes to admit patient under observation for further evaluation and management. When I saw the patient in the ER he was awake, alert, oriented x3. Patient with significant bilateral pitting edema lower extremities bibasilar crackles, patient saturating around 93% on 3-4 L per nasal cannula at this time. Will admit under observation for diuresis. - Past Medical/Surgical History Diabetic: Yes -: Diabetes mellitus type 2 -: Hypertension -: Hyperlipidemia -: Anemia chronic disease -: CKD 3 Psychosocial/ Personal History: Patient lives at home with his family - Family History Family History: Reviewed- Non-Contributory - Social History Smoking Status: Never smoker Alcohol use: No CD- Drugs: No Caffeine use: Yes Place of Residence: Home <Abelardo Mohan - Last Filed: 06/28/20 21:01> Date of Service: 07/08/20 - Past Medical/Surgical History Past Surgical History: Patient denies surgical history <Zachary Menchaca - Last Filed: 07/08/20 04:19> Allergies No Known Allergies Allergy (Verified 06/28/20 23:42) Home Medications: Carvedilol [Coreg] 12.5 mg PO BID 06/13/20 Doxazosin [Cardura*] 1 mg PO BEDTIME 06/13/20 Dulaglutide [Trulicity] 1.5 mg SQ 1X 06/13/20 Gabapentin 300 mg PO DAILY 06/13/20 Glimepiride 4 mg PO BID 06/13/20 Linagliptin [Tradjenta] 5 mg PO DAILY 06/13/20 Simvastatin 20 mg PO BEDTIME 06/13/20 Telmisartan/Hydrochlorothiazid [Micardis Hct 80-12.5 mg Tablet] 1 each PO DAILY 06/13/20 buPROPion HCl [Bupropion HCl Sr] 100 mg PO DAILY 06/13/20 Apixaban [Eliquis] 5 mg PO BID 30 Days #60 tablet 06/18/20 levoFLOXacin [Levaquin*] 500 mg PO DAILY 6 Days #6 tab 06/18/20 predniSONE [Prednisone*] 20 mg PO SEECOM #21 tab 06/18/20 Thong [Thong*] 1 pkt PO BID #60 powd.pack 07/07/20 Meropenem [Merrem 1 GM/100 ML NS IVPB] 1 gm IV BID 7 Days bag 07/07/20 Review of Systems 10-point ROS is otherwise unremarkable Respiratory: Shortness of Breath, SOB with Excertion Cardiovascular: Orthopnea, Edema <Abelardo Mohan - Last Filed: 06/28/20 21:01> Physical Examination - Physical Exam General: Alert, In no apparent distress HEENT: Atraumatic, PERRLA, Mucous membr. moist/pink Neck: Supple, 2+ carotid pulse no bruit, No LAD Respiratory: Normal air movement, Crackles/rales (Bilaterally) Cardiovascular: Regular rate/rhythm, Normal S1 S2, Edema (2+ pitting edema bilateral lower extremities to the level of the wan) Capillary refill: <2 Seconds Gastrointestinal: Normal bowel sounds, No tenderness Musculoskeletal: No tenderness Integumentary: No rashes Neurological: Normal gait, Normal strength at 5/5 x4 extr, Normal tone - Studies Laboratory Data (last 24 hrs) 06/28/20 19:23: PT 15.8 H, INR 1.35 06/28/20 19:23: WBC 17.7 H, Hgb 9.3 L, Hct 29.2 L, Plt Count 148 L D 06/28/20 19:23: Sodium 134 L, Potassium 4.0, BUN 42 H, Creatinine 1.86 H, Glucose 514 H*, Magnesium 2.2, Total Bilirubin 0.3, AST 9 L, ALT 20, Alkaline Phosphatase 101 <Abelardo Mohan - Last Filed: 06/28/20 21:01> Assessment and Plan - Plan Assessment Dyspnea and volume overload suspect underlying undiagnosed CHF Diabetes mellitus type 2 with hyperglycemia Leukocytosis Hypertension Hyperlipidemia Anemia chronic disease CKD 3 COVID + Plan Dyspnea and volume overload suspect underlying undiagnosed CHF: Continue with IV diuresis, fluid restriction, daily weights. Cardiology consult in place. Patient would likely benefit from echocardiogram either inpatient or outpatient at the discretion of cardiology. Continue with supplemental oxygen as needed. DVT prophylaxis heparin 5000 units subcutaneous twice daily. Diabetes mellitus type 2 with hyperglycemia: A.c. HS Accu-Cheks, sliding scale insulin therapy. A1c with morning labs. This is likely due to recent steroid use. Leukocytosis: Likely related to use of steroids for Green virus. Continue to monitor for other signs of infection. Hypertension: Obtain and continue home medications Hyperlipidemia: Obtain and continue home medications Anemia chronic disease: Appears stable at this time, monitor daily labs. CKD 3: Appears stable this time, continue with IV diuresis and daily labs. COVID +: No ischemic change respiratory status. Continue to monitor closely. Discharge Plan: Home Plan to discharge in: 24 Hours - Advance Directives Does patient have a Living Will: No Does patient have a Durable POA for Healthcare: No - Code Status/Comfort Care Code Status Assessed: Yes (Full code) Critical Care: No Time Spent Managing Pts Care (In Minutes): 55 <Abelardo Mohan - Last Filed: 06/28/20 21:01> - Plan Plan of care reviewed as noted by Abelardo Mohan, and I agree with the management plan as noted above. Please see my note on 06/29 for further information <Zachary Menchaca - Last Filed: 07/08/20 04:19>
[2020-06-28] MEDS ORDERED: ACETAMINOPHEN 500 MG TAB PO PRN (23:32)
[2020-06-28] MEDS ORDERED: HEPARIN 5000 UNIT/ML 1 ML VIAL SQ SCH (23:32)
[2020-06-28] MEDS ORDERED: ONDANSETRON 4 MG/2 ML VIAL IV PRN (23:32)
[2020-06-29] MEDS: INSULIN -REGULAR HUMAN 50 UNIT/0.5 ML ML SQ SCH ×7 (00:16→21:35)
[2020-06-29 03:32] LABS: Absolute Lymphocytes (CBC) 0.8 K/uL (0.7-4.9); Basophils % 0.3 % (0-1.3); Hematocrit 27.2 % (39.6-49.0); Lymphocytes % 5.6 % (15.3-44.8); MPV 10.1 fL (7.6-11.3); RBC Red Blood Cell Count 3.05 M/uL (4.33-5.43)
[2020-06-29 04:08] LABS: Magnesium 1.8 mg/dL (1.8-2.4); Potassium 3.2 mmol/L (3.5-5.1); Thyroid Stimulating Hormone 0.481 uIU/mL (0.360-3.740)
[2020-06-29] MEDS: BUPROPION HCL 100 MG PO SCH (07:55)
[2020-06-29] MEDS ORDERED: INFLUENZA VACCINE (for 3y+) 0.5 ML DOSE IMVAC ONE (08:00)
[2020-06-29] MEDS ORDERED: PNEUMOCOCCAL VACCINE 0.5 ML IMVAC ONE (08:00)
[2020-06-29] MEDS ORDERED: MAGNESIUM SULFATE 1 gm IVPB 1 GM/100 ML BAG IV ONE (08:00)
[2020-06-29] MEDS ORDERED: POTASSIUM CL SA 10 MEQ TAB PO ONE (08:00)
[2020-06-29] MEDS: APIXABAN 5 MG TABLET PO SCH ×2 (08:01→21:35)
[2020-06-29] MEDS: GABAPENTIN 300 MG CAP PO SCH (08:02)
[2020-06-29] MEDS ORDERED: FUROSEMIDE 40 MG/4 ML VIAL IV SCH (09:00)
[2020-06-29] MEDS ORDERED: carvediloL 12.5 MG TAB PO SCH (09:00)
[2020-06-29] MEDS ORDERED: levoFLOXacin 500 MG TAB PO SCH (09:00)
--- NOTE | 2020-06-29 09:43 | RAD REPORT ---
EXAM DESCRIPTION: CT - Ct Stroke Brain Wo Cont - 06/29/2020 9:29 am CLINICAL HISTORY: unresponsive, transient alteration of awareness, limited ability to obtain neurolo gic examination due to patient mental status. COMPARISON: No comparisons TECHNIQUE: Axial 5 millimeter thick images of the head were obtained without IV contrast. All CT scans are performed using dose optimization technique as appropriate and may include automated exposure control or mA/KV adjustment according to patient size. FINDINGS: No intracranial hemorrhage, mass, or cerebral edema. No acute cortical based infarction. N o cortical edema or sulcal effacement. Moderate atrophy changes are present with ventricles in propor tion to the amount of volume loss. Chronic ischemic changes are present slightly more pronounced santo g the left insular cortex and external capsule. Richardson matter-white matter differentiation is preserved . Visualized portions of the mastoid air cells, paranasal sinuses, and orbits are unremarkable. Findings telephoned to Dr. Zachary Menchaca 9:37 a.m. IMPRESSION: No intracranial hemorrhage. No acute intracranial finding identifiable. Moderate severity atrophy and chronic ischemic change present. The chronic ischemic change can mask n onhemorrhagic acute CVA.
[2020-06-29 10:14] LABS: Absolute Lymphocytes (CBC) 0.3 K/uL (0.7-4.9); Basophils % 0.2 % (0-1.3); Hematocrit 27.7 % (39.6-49.0); Lymphocytes % 3.3 % (15.3-44.8); MPV 9.7 fL (7.6-11.3); RBC Red Blood Cell Count 3.15 M/uL (4.33-5.43)
[2020-06-29 10:17] LABS: Protime INR 1.38
[2020-06-29 10:25] LABS: Albumin 1.7 g/dL (3.4-5.0); Bilirubin Total 0.6 mg/dL (0.2-1.0); Potassium 3.7 mmol/L (3.5-5.1)
[2020-06-29 10:44] LABS: Blood Morphology Comment NOT SEEN (NOT SEEN); Platelet Estimate ADEQ
[2020-06-29] MEDS ORDERED: NA CHLORIDE 0.9% 1,000 ML ONE ×2 (11:07→12:07)
[2020-06-29 11:15] LABS: Arterial Blood Carboxyhemoglob 1.5 % (0-1.5); Blood Gas Oxyhemoglobin 89.6 % (94-97); Blood O2 Saturation 92.2 % (92-98.5)
[2020-06-29] MEDS ORDERED: SODIUM CHL 0.9% 1000 ML BAG IV ONE ×2 (11:15→13:38)
--- NOTE | 2020-06-29 11:18 | RAD REPORT ---
EXAM DESCRIPTION: RAD - Chest Single View - 06/29/2020 11:05 am CLINICAL HISTORY: stroke protocol COMPARISON: Portable June 28 TECHNIQUE: AP portable chest image was obtained 06/29/2020 11:05 am . FINDINGS: Exam has motion degradation. Bilateral patchy infiltrate pattern has not changed from the prior day examination. Heart and vasculature are normal. No measurable pleural effusion and no pneumo thorax. No acute bony abnormality seen. No acute aortic findings suspected. IMPRESSION: Stable portable chest from June 28 imaging.
--- NOTE | 2020-06-29 11:25 | P.PN ---
Subjective Date of Service: 06/29/20 Primary Care Provider: Dr. Díaz, Dr. Carpenter Chief Complaint: Dyspnea Subjective: Other (Pt seen this morning, doing well, reported peeing often, felt swelling was improving a little bit. breathing ok) Review of Systems 10-point ROS is otherwise unremarkable Physical Examination - Vital Signs Temperature: 98.3 F Blood Pressure: 165/105 Pulse: 117 Respirations: 30 Pulse Ox (%): 95 - Physical Exam General: Alert, In no apparent distress, Oriented x3 HEENT: Sclerae nonicteric Respiratory: Other (non-labored on 3LNC) Cardiovascular: Edema (2+ b/l pitting edema to knees) Gastrointestinal: Soft and benign, No tenderness Integumentary: No rashes Neurological: Normal speech, Normal affect - Studies Laboratory Data (last 24 hrs) 06/29/20 09:57: Sodium 140, Potassium 3.7, BUN 36 H, Creatinine 1.55 H, Glucose 150 H, Total Bilirubin 0.6, AST 25, ALT 22, Alkaline Phosphatase 169 H D 06/29/20 09:57: PT 16.2 H, INR 1.38, APTT 22.9 L 06/29/20 09:57: WBC 8.0 D, Hgb 9.2 L, Hct 27.7 L, Plt Count 121 L 06/29/20 03:06: Sodium 137, Potassium 3.2 L, BUN 38 H, Creatinine 1.58 H, Glucose 338 H, Magnesium 1.8, Triglycerides 115, Cholesterol 99, HDL Cholesterol 34 L, Cholesterol/HDL Ratio 2.91 06/29/20 03:06: WBC 14.8 H D, Hgb 9.0 L, Hct 27.2 L, Plt Count 127 L 06/28/20 19:23: PT 15.8 H, INR 1.35 06/28/20 19:23: WBC 17.7 H, Hgb 9.3 L, Hct 29.2 L, Plt Count 148 L D 06/28/20 19:23: Sodium 134 L, Potassium 4.0, BUN 42 H, Creatinine 1.86 H, Glu cose 514 H*, Magnesium 2.2, Total Bilirubin 0.3, AST 9 L, ALT 20, Alkaline Phosphatase 101 Assessment & Plan Physician Review Additional Text: Dyspnea and volume overload suspect underlying undiagnosed CHF Diabetes mellitus type 2 with hyperglycemia Leukocytosis Hypertension Hyperlipidemia Anemia chronic disease CKD 3 COVID + Plan Dyspnea and volume overload suspect underlying undiagnosed CHF: continue IV lasix for diuresis, fluid restriction, daily weights, monitor UOP Cardiology consulted - for echo today continue O2 as needed Diabetes mellitus type 2 with hyperglycemia: Hyperglycemic on presentation, received insulin in ED and overnight. Glc down to 150s now Leukocytosis: Likely related to use of steroids for Green virus. Continue to monitor for other signs of infection. Hypertension: received home medications this morning for hypertension Hyperlipidemia: Obtain and continue home medications Anemia chronic disease: Appears stable at this time, monitor daily labs. CKD 3: Appears stable this time, continue with IV diuresis and daily labs. COVID +: No ischemic change respiratory status. Continue to monitor closely. Dispo: anticipate dc home in 24-48hrs Time Spent Managing Pts Care (In Minutes): 40
--- NOTE | 2020-06-29 12:00 | P.CNS ---
Date of Consult: 06/29/20 Primary Care Provider: Dr. Díaz, Dr. Carpenter Chief Complaint: Hypotension History of Present Illness: Patient is 80 years of age he was admitted with tierney virus infection and approximately 2 weeks ago the daughter call me about 2 days ago informing me that he is having lower extremity edema and elevated blood sugar. Patient has a history of diabetes chronic renal disease was admitted from the emergency room with stable blood pressure was diuresed became hypotensive and was then transferred to the ICU blood sugar was very high/patient became transiently unresponsive CT of the head was negative 7 Allergies No Known Allergies Allergy (Verified 06/28/20 23:42) Home Medications: Carvedilol [Coreg] 12.5 mg PO BID 06/13/20 Doxazosin [Cardura*] 1 mg PO BEDTIME 06/13/20 Dulaglutide [Trulicity] 1.5 mg SQ 1X 06/13/20 Gabapentin 300 mg PO DAILY 06/13/20 Glimepiride 4 mg PO BID 06/13/20 Linagliptin [Tradjenta] 5 mg PO DAILY 06/13/20 Simvastatin 20 mg PO BEDTIME 06/13/20 Telmisartan/Hydrochlorothiazid [Micardis Hct 80-12.5 mg Tablet] 1 each PO DAILY 06/13/20 buPROPion HCl [Bupropion HCl Sr] 100 mg PO DAILY 06/13/20 Apixaban [Eliquis] 5 mg PO BID 30 Days #60 tablet 06/18/20 levoFLOXacin [Levaquin*] 500 mg PO DAILY 6 Days #6 tab 06/18/20 predniSONE [Deltasone] 20 mg PO SEECOM #21 tab 06/18/20 - Past Medical/Surgical History Diabetic: Yes -: Diabetes mellitus type 2 -: Hypertension -: Hyperlipidemia -: Anemia chronic disease -: CKD 3 -: Tierney virus infection Psychosocial/ Personal History: Patient lives at home with his family - Social History Alcohol use: No CD- Drugs: No Caffeine use: No Place of Residence: Home Review of Systems is unable to be obtained Physical Examination Temp Pulse Resp BP Pulse Ox 98.3 F 117 H 30 H 165/105 H 95 06/29/20 11:27 06/29/20 11:27 06/29/20 11:27 06/29/20 11:27 06/29/20 11:27 General: Moderate distress Neck: Supple Respiratory: Clear to auscultation bilaterally Cardiovascular: Normal S1 S2, Edema (Lower extremity edema) Gastrointestinal: Normal bowel sounds, Soft and benign Laboratory Data (last 24 hrs) 06/29/20 09:57: Sodium 140, Potassium 3.7, BUN 36 H, Creatinine 1.55 H, Glucose 150 H, Total Bilirubin 0.6, AST 25, ALT 22, Alkaline Phosphatase 169 H D 06/29/20 09:57: PT 16.2 H, INR 1.38, APTT 22.9 L 06/29/20 09:57: WBC 8.0 D, Hgb 9.2 L, Hct 27.7 L, Plt Count 121 L 06/29/20 03:06: Sodium 137, Potassium 3.2 L, BUN 38 H, Creatinine 1.58 H, Glucose 338 H, Magnesium 1.8, Triglycerides 115, Cholesterol 99, HDL Cholesterol 34 L, Cholesterol/HDL Ratio 2.91 06/29/20 03:06: WBC 14.8 H D, Hgb 9.0 L, Hct 27.2 L, Plt Count 127 L 06/28/20 19:23: PT 15.8 H, INR 1.35 06/28/20 19:23: WBC 17.7 H, Hgb 9.3 L, Hct 29.2 L, Plt Count 148 L D 06/28/20 19:23: Sodium 134 L, Potassium 4.0, BUN 42 H, Creatinine 1.86 H, Glucose 514 H*, Magnesium 2.2, Total Bilirubin 0.3, AST 9 L, ALT 20, Alkaline Phosphatase 101 - Problems (1) Shock Current Visit: Yes Status: Acute Plan: Patient is 80 years of age recent diagnosis of tierney virus infection admitted with hyperglycemia later developed hypotension mildly anemic consistent with his chronic renal failure he is a diabetic patient is hypoxic white count was elevated now normal agree with volume resuscitation Levophed if needed x-ray shows minimal interstitial change his oxygenation is satisfactory for tension probably due to Lasix continue with broad-spectrum antibiotics blood cultures pending CT of the head was negative he was initially responsive doubt stroke patient has a respiratory alkalosis
[2020-06-29] MEDS: ALBUMIN HUMAN 25% 100 ML IV SCH ×2 (12:54→12:55)
[2020-06-29] MEDS ORDERED: NA CHLORIDE 0.9% IV SCH (13:15)
[2020-06-29] MEDS: VANCOMYCIN 2 GM in NA CHLORIDE 0.9% 500 ML IVPB SCH (13:37)
[2020-06-29] MEDS: CEFEPIME/SWI 2gm 2 GM/20 ML SYR IV SCH ×2 (13:37→21:37)
--- NOTE | 2020-06-29 14:22 | OP ---
Date of Procedure: 06/29/2020 Surgeon: Shreyas Mcguire MD Preoperative Diagnoses: Hypovolemia, COVID positive, poor peripheral access. Procedure: Placement of central line, right femoral vein. Anesthesia: Local. Complications: None. Estimated Blood Loss: Less than 5 cc. Indications For Procedure: This is the case of a 80-year-old patient, see my previous consult for de tails. The patient needs a central line immediately. Description Of Proecdure: After consent was obtained, the right femoral area was prepped and draped in sterile fashion. Lidocaine 1% plain was injected for local anesthetic after time-out. An 18-gaug e needle was placed in the right femoral vein at the first attempt. Guidewire was passed through. T unnel was created and the line was placed over the guidewire using Seldinger technique. Guidewire wa s removed. Excellent backflow and inflow. The line was secured in place with 3-0 nylon and covered with sterile dressings. The patient tolerated the procedure well. The patient will remain on the se rvice of the primary doctor in the intensive care unit. ARIES/BERENICE Voice ID: [id number] Report ID: [id number]
[2020-06-29] MEDS ORDERED: NOREPINEPHRINE 4 MG in D5W 250 ML IV PRN ×2 (14:30→14:40)
[2020-06-29] MEDS ORDERED: D50W 50 ML IV ONE (14:55)
[2020-06-29] MEDS ORDERED: D5 0.45 NS 1,000 ML IV SCH (15:00)
--- NOTE | 2020-06-29 15:07 | CON ---
Diagnoses: Possible CVA, possible sepsis. History Of Present Illness: This is a case of a 80-year-old patient admitted to the hospital for med ical issues, found to have hypovolemia and some other abnormal vital signs, moving stat to the ICU, t he medical doctors tried to work on him, but they noticed that they do not have enough lines. So, th kar called for immediate placement of a central line. The information that I have is from the primary physicians. The patient cannot give any information. There is no family at this moment to give me all the information. They asked for the central line status in the emergency. Allergies: NONE. Medical Problems: Include diabetes, hypertension, anemia. Medication: Reviewed including Eliquis. Family History: Unknown. Review of Systems: Unable to be obtained. Physical Examination: General: The patient is awake, although does not follow commands. Chest: Bilateral breath sounds. Abdomen: Soft and depressible. Extremities: Good capillary refill. Laboratory Data: Blood work shows WBC count of 8, hemoglobin of 9.2. INR is 1.38. Plan: Placement of a central line. The family was called for telephone order for central line place ment with benefits, alternatives, and risks explained which include, but not limited to infection, bl eeding, damage to adjacent structures, anesthesia complication, DVTs, PE, lower extremity complicatio ns like vascular damage, nerve damage, OH and even . That needs to be done as soon as possible and is safer. If he needs this long-term central line then he will have to be placed in another safe r area in the future. This was done emergently in the femoral region. See procedure note. ARIES/BERENICE Voice ID: [id number] Report ID: [id number]
[2020-06-29 15:36] LABS: Arterial Blood Carboxyhemoglob 1.3 % (0-1.5); Blood Gas Oxyhemoglobin 92.4 % (94-97); Blood O2 Saturation 95.1 % (92-98.5)
--- NOTE | 2020-06-29 16:46 | P.INFCA ---
Sepsis Focused Assessment - Focused Assessment Complete? Sepsis Focused Assessment Completed?: Yes - Sepsis Screen Result Severe Sepsis: Positive Septic Shock: Positive - Evaluation Current stage of sepsis: Septic shock - Vital Signs Reviewed: Yes Heart rate: 66 Blood Pressure: 103/47 Respiratory Rate: 15 O2 Sat by Pulse Oximetry: 97 - Examination Date exam was performed: 06/29/20 Time exam was performed: 16:40 Heart: Regular rate/rhythm Lungs: Crackles, Other (diminished breath sounds at bases, on BIPAP) Peripheral pulses: 3+ Normal Peripheral pulse location: Radial Capillary refill: <2 Seconds Skin examination: Normal turgor Comments: on levophed. AAOx2, moving all extremities
[2020-06-29] MEDS ORDERED: LIDOCAINE JELLY 2%- 5 ML TUBE TOP ONE (17:10)
[2020-06-29 17:55] LABS: Urine Appearance CLOUDY; Urine Bilirubin NEGATIVE (NEG); Urine Blood 1+ (NEG); Urine Color YELLOW; Urine Glucose NEGATIVE (NEG); Urine Protein 1+ (NEG); Urine Urobilinogen 0.2 mg/dL (0.2-1.0)
[2020-06-29 18:16] LABS: Urine Microscopic Reflex ORDER UMIC
[2020-06-29 18:17] LABS: Urine RBC <5 /HPF (NONE SEEN)
[2020-06-29 18:18] LABS: Urine Bacteria >50 /HPF (NONE SEEN)
[2020-06-29] MEDS ORDERED: LIDOCAINE 1% 20 ML MDV ONE (19:24)
--- NOTE | 2020-06-29 20:30 | CON ---
Urology procedure note and consultation note Reason For Consultation: Respiratory distress and hypoxia, requiring pressors and strict intake and output monitoring. History Of Present Illness: Mr. Jack is a 80-year-old gentleman with COVID-19, who was admitted t o the hospital and began to have respiratory distress with hypoxia and lack of responsiveness. He wa s transferred to the [facility] ICU for management where he has been placed on high dose vasopressor thera py. During this time, because of the significant risk of acute renal injury and the need to monitor his intake and output in a reliable fashion, they required placement of a urethral Duffy catheter. U nfortunately, however, they were unable to access his urethra in order to place a catheter and a urol ogy consultation was requested. Physical Examination: I presented and examined the patient, who was sitting upright and at this point, communicative from h is prior nonresponsive state. I examined his genitalia, which revealed an uncircumcised phallus with dense phimosis and only a pinpoint opening approximately 3-[place] Citizen in diameter. As this was not hossein g to be accessible by any catheter, and to my visualization of the opening, it extended for more than a half centimeter to 1 centimeter in depth, I then elected to proceed with an attempt to stretch the prepuce and possibly consider a dorsal slit. Procedure Note: His genitalia were prepped using Betadine and draped in standard fashion. Using 1% lidocaine and a 23-gauge needle, I injected the prepuce subcutaneously in a circumferential pattern. Once the area was adequately anesthetized, I then used a hemostat to gain access to the hole and the n began to gently stretch it open until I was able to visualize the glans. While I was not able to r etract the prepuce in order to visualize the entirety of the glans, I was able to open it sufficientl y to insert a Betadine swab and cleanse around the glans and meatus with Betadine. I then used 1% li docaine jelly and injected 5 cc intraurethrally for local anesthesia. I was then able to navigate a 16-[place] Citizen urethral Duffy catheter to the meatus and passed it with ease into the bladder where I rece ived return of clear yellow urine. A 10 cc of sterile water was placed into the balloon, and the cat heter was secured to his upper thigh on the left using a StatLock. He had a triple-lumen central alina ous catheter in the right groin; so I wanted to avoid this area. The catheter was then placed to gra vity drainage, and the procedure was concluded. He only had mild oozing from the mild skin tears due to the stretching, but otherwise tolerated the procedure well. Assessment: This is a 80-year-old gentleman with COVID-19, in respiratory distress, admitted to the ICU requiring strict I's and O's monitoring and urethral Duffy catheter, which was successfully place d this evening with a 16-[place] Citizen urethral Duffy catheter, difficulty secondary to dense phimosis. Ple ase care for the foreskin by cleansing around the catheter and the foreskin twice a day with hydrogen peroxide or soap and water, taking care to try to retract the foreskin gently to expose just the ravindra tus of the glans. Then apply Neosporin or bacitracin around the catheter at the meatus and over the torn areas of the prepuce to prevent any local skin infection. He should follow up with me in the Ur [facility]logy Clinic as an outpatient once this COVID has surpassed, and at the time it is deemed acceptable to remove the urethral Duffy catheter, a voiding trial should be given where he is allowed no more th an 6-8 hours to void with a bladder scan postvoid residual assessment made to determine whether he is successfully able to void spontaneously on his own. Should he void less urine than he retains, he w ill have failed the voiding trial and a new urethral Duffy catheter should be inserted into his bladd er before the prepuce has an opportunity to seal closed again. Otherwise, we will manage him in the Outpatient Urology Clinic. INOCENCIO/BERENICE Voice ID: [id number] Report ID: [id number]
[2020-06-29] MEDS ORDERED: HOME MED 1 EA UNK (Simvastatin [Simvastatin] 20 MG Tablet) PO SCH (21:00)
[2020-06-29] MEDS ORDERED: CEFEPIME 2 GM VIAL IV SCH (21:00)
[2020-06-29] MEDS ORDERED: DOXAZOSIN 2 MG TAB PO SCH (21:00)
[2020-06-29] MEDS: ATORVASTATIN 10 MG TAB PO SCH (21:35)
[2020-06-29] MEDS: JUVEN PACKET PO SCH (21:36)
[2020-06-29 21:44] LABS: Urine Appearance CLOUDY; Urine Bilirubin NEGATIVE (NEG); Urine Blood 2+ (NEG); Urine Color YELLOW; Urine Glucose 3+ (NEG); Urine Protein 1+ (NEG); Urine Urobilinogen 0.2 mg/dL (0.2-1.0)
[2020-06-29 21:46] LABS: Urine Microscopic Reflex ORDER UMIC
[2020-06-29 22:06] LABS: Urine Bacteria 20-50 /HPF (NONE SEEN); Urine Mucus 2+ /HPF (NONE SEEN); Urine Urothelial Cells <5 /HPF (NONE SEEN)
[2020-06-30] MEDS: INSULIN -REGULAR HUMAN 50 UNIT/0.5 ML ML SQ SCH ×6 (01:09→20:56)
[2020-06-30 05:20] LABS: Basophils % 0.1 % (0-1.3); Lymphocytes % 7.3 % (15.3-44.8); MPV 9.8 fL (7.6-11.3); RBC Red Blood Cell Count 2.34 M/uL (4.33-5.43)
[2020-06-30 05:25] LABS: Hematocrit 20.9 % (39.6-49.0)
[2020-06-30 05:45] LABS: Bilirubin Total 0.3 mg/dL (0.2-1.0); Ferritin 380.7 ng/mL (26-388); Potassium 3.4 mmol/L (3.5-5.1); Protein, Total 5.4 g/dL (6.4-8.2)
[2020-06-30 06:44] LABS: Hematocrit 21.7 % (39.6-49.0)
--- NOTE | 2020-06-30 08:15 | RAD REPORT ---
EXAM DESCRIPTION: Maxine Single View06/30/2020 6:02 am CLINICAL HISTORY: Shortness of breath COMPARISON: June 29 FINDINGS: Moderate bilateral pulmonary opacities are unchanged. Heart is mildly enlarged IMPRESSION: No change in moderate bilateral pulmonary opacities probably pneumonia
[2020-06-30] MEDS: CEFEPIME/SWI 2gm 2 GM/20 ML SYR IV SCH ×2 (08:21→20:55)
[2020-06-30] MEDS: GABAPENTIN 300 MG CAP PO SCH (08:21)
[2020-06-30] MEDS: APIXABAN 5 MG TABLET PO SCH (08:21)
[2020-06-30] MEDS: BUPROPION HCL 100 MG PO SCH (08:21)
[2020-06-30] MEDS: JUVEN PACKET PO SCH ×2 (08:22→20:57)
[2020-06-30 09:35] LABS: Hematocrit 22.4 % (39.6-49.0)
[2020-06-30] MEDS ORDERED: NA CHLORIDE 0.9% 250 ML IV ONE ×2 (10:44→14:10)
[2020-06-30] MEDS ORDERED: GLUCAGON 1 MG/VIAL IM PRN (11:59)
[2020-06-30] MEDS ORDERED: D50W 25 GM/50 ML SYRINGE IV PRN (11:59)
[2020-06-30] MEDS: NA CHLORIDE 0.9% 250 ML IV ONE ×2 (12:00→13:01)
--- NOTE | 2020-06-30 12:00 | P.PN ---
Subjective Date of Service: 06/30/20 Primary Care Provider: Dr. Díaz, Dr. Carpenter Chief Complaint: Septic shock Subjective: Improving (Patient is doing much better today is very alert oriented responsive cooperative own oxygen stage on low-dose of Levophed) Review of Systems General: Weakness Respiratory: Shortness of Breath Physical Examination - Vital Signs Temperature: 98.5 F Blood Pressure: 106/46 Pulse: 75 Respirations: 20 Pulse Ox (%): 93 - Physical Exam General: Alert, Cooperative, Mild distress Respiratory: Clear to auscultation bilaterally Cardiovascular: No edema, Regular rate/rhythm Assessment & Plan - Problems (Diagnosis) (1) Shock Current Visit: Yes Status: Acute Plan: Patient is 80 years of age admitted with septic shock gram-negative rods isolated continue with present medications he has improved significantly Dc MRI of the head pro calcitonin was 30 still has hypertension will bolus with another 500 cc of normal saline to wean him off Levophed mildly anemic white count is declining continue to monitor oxygenation satisfactory patient has a history of tierney virus pneumonia white steroids for now
[2020-06-30] MEDS: INSULIN GLARGINE 100 UNITS/ML SQ SCH (17:08)
[2020-06-30] MEDS: ATORVASTATIN 10 MG TAB PO SCH (20:56)
[2020-07-01] MEDS: INSULIN -REGULAR HUMAN 50 UNIT/0.5 ML ML SQ SCH ×6 (00:34→21:00)
[2020-07-01] MEDS: VANCOMYCIN 2 GM in NA CHLORIDE 0.9% 500 ML IVPB SCH (01:03)
[2020-07-01 06:38] VITALS: BMI 36.9
[2020-07-01 06:42] LABS: Hematocrit 21.9 % (39.6-49.0); MPV 10.3 fL (7.6-11.3); RBC Red Blood Cell Count 2.46 M/uL (4.33-5.43)
[2020-07-01 07:10] LABS: Ferritin 265.9 ng/mL (26-388); Magnesium 1.8 mg/dL (1.8-2.4); Potassium 3.1 mmol/L (3.5-5.1)
[2020-07-01] MEDS: GABAPENTIN 300 MG CAP PO SCH (08:18)
[2020-07-01] MEDS: CEFEPIME/SWI 2gm 2 GM/20 ML SYR IV SCH (08:18)
[2020-07-01] MEDS: JUVEN PACKET PO SCH ×2 (08:19→21:00)
[2020-07-01] MEDS: BUPROPION HCL 100 MG PO SCH (08:19)
[2020-07-01] MEDS ORDERED: ENOXAPARIN 40 MG/0.4 ML SQ SCH (09:00)
[2020-07-01] MEDS ORDERED: MAGNESIUM SULFATE 1 gm IVPB 1 GM/100 ML BAG IV ONE (09:00)
[2020-07-01] MEDS ORDERED: POTASSIUM CL SA 10 MEQ TAB PO ONE (09:00)
--- NOTE | 2020-07-01 12:38 | P.PN ---
Subjective Date of Service: 07/01/20 Primary Care Provider: Dr. Díaz, Dr. Carpenter Chief Complaint: Septic shock Subjective: Improving (Patient is doing much better is off vasopressors mal alert responsive ESBL isolated) Review of Systems General: Weakness Physical Examination - Vital Signs Temperature: 97.3 F Blood Pressure: 123/62 Pulse: 80 Respirations: 19 Pulse Ox (%): 92 - Physical Exam General: Alert, Oriented x3 Respiratory: Clear to auscultation bilaterally Cardiovascular: No edema, Regular rate/rhythm Assessment & Plan - Problems (Diagnosis) (1) ESBL (extended spectrum beta-lactamase) producing bacteria infection Current Visit: Yes Status: Acute Plan: Patient is 80 years of age admitted with the ESBL infection septic shock patient is doing much better change to meropenem IV PICC line Dc vancomycin patient is mildly anemic blood sugar seems to be controlled the resume some of his home medications
--- NOTE | 2020-07-01 12:54 | ECHO ---
HEIGHT: 5 ft 7 in WEIGHT: 235 lb 14.4 oz DATE OF STUDY: 06/29/[address]: Devon Ibarra MD 2-DIMENSIONAL: YES M.MODE: YES DOPPLER: YES COLOR FLOW: YES TDS: YES PORTABLE: DEFINITY: BUBBLE STUDY: DIAGNOSIS: CONGESTIVE HEART FAILURE CARDIAC HISTORY: CATHERIZATION: NO SURGERY: NO PROSTHETIC VALVE: NO PACEMAKER: NO MEASUREMENTS (cm) DIASTOLIC (NORMALS) SYSTOLIC (NORMALS) IVSd (0.6-1.2) LA Diam (1.9-4.0) LVEF 55-60% LVIDd (3.5-5.7) LVIDs (2.0-3.5) %FS % LVPWd (0.6-1.2) Ao Diam (2.0-3.7) 2 DIMENSIONAL ASSESSMENT: RIGHT ATRIUM: NORMAL LEFT ATRIUM: NORMAL RIGHT VENTRICLE: NORMAL LEFT VENTRICLE: NORMAL TRICUSPID VALVE: NORMAL MITRAL VALVE: NORMAL PULMONIC VALVE: NORMAL AORTIC VALVE: NORMAL PERICARDIAL EFFUSION: NONE AORTIC ROOT: NORMAL LEFT VENTRICULAR WALL MOTION: NORMAL DOPPLER/COLOR FLOW: COMMENTS: NORMAL LEFT VENTRICULAR EJECTION FRACTION 55-60% WITH NORMAL WALL MOTION. DIASTOLIC DYSFUNCTION IS PRESENT, GRADE TWO. TECHNOLOGIST: ROBIN MONTNAA
[2020-07-01] MEDS: Meropenem 1,000 MG in NA CHLORIDE 0.9% 100 ML IV SCH ×2 (13:29→21:41)
[2020-07-01] MEDS ORDERED: D50W 25 GM/50 ML VIAL IV PRN (16:17)
[2020-07-01] MEDS: INSULIN GLARGINE 100 UNITS/ML SQ SCH (16:44)
[2020-07-01] MEDS ORDERED: Meropenem 1000 MG/VIAL IV SCH (17:00)
[2020-07-01] MEDS: ATORVASTATIN 10 MG TAB PO SCH (21:41)
[2020-07-01] MEDS ORDERED: VANCOMYCIN 2 GM in NA CHLORIDE 0.9% 500 ML IVPB SCH (23:00)
[2020-07-02 07:28] LABS: Hematocrit 22.3 % (39.6-49.0); MPV 10.1 fL (7.6-11.3); RBC Red Blood Cell Count 2.53 M/uL (4.33-5.43)
[2020-07-02 07:30] LABS: Magnesium 1.8 mg/dL (1.8-2.4); Potassium 3.5 mmol/L (3.5-5.1)
[2020-07-02] MEDS: INSULIN -REGULAR HUMAN 50 UNIT/0.5 ML ML SQ SCH ×4 (07:30→21:00)
[2020-07-02] MEDS: JUVEN PACKET PO SCH ×2 (09:00→20:58)
[2020-07-02] MEDS: Meropenem 1,000 MG in NA CHLORIDE 0.9% 100 ML IV SCH ×2 (10:05→20:58)
[2020-07-02] MEDS: GABAPENTIN 300 MG CAP PO SCH (10:05)
--- NOTE | 2020-07-02 10:20 | P.PN ---
Subjective Date of Service: 07/02/20 Primary Care Provider: Dr. Díaz, Dr. Carpenter Chief Complaint: ESBL bacteremia Subjective: Improving (Patient is doing much better back to his baseline no new complaints) Physical Examination - Vital Signs Temperature: 98.4 F Blood Pressure: 140/62 Pulse: 73 Respirations: 18 Pulse Ox (%): 91 - Physical Exam General: Alert, Cooperative Respiratory: Clear to auscultation bilaterally Cardiovascular: No edema, Normal pulses Assessment & Plan - Problems (Diagnosis) (1) ESBL (extended spectrum beta-lactamase) producing bacteria infection Current Visit: Yes Status: Acute Plan: Patient is reviewed recovering very well from his ESBL bacteremia continue with present therapy mildly anemic the setup for IV antibiotics vital signs stable plan to discharge once antibiotics have been setup Physician Review Additional Text: Dyspnea and volume overload suspect underlying undiagnosed CHF Diabetes mellitus type 2 with hyperglycemia Leukocytosis Hypertension Hyperlipidemia Anemia chronic disease CKD 3 COVID + Plan Dyspnea and volume overload suspect underlying undiagnosed CHF: continue IV lasix for diuresis, fluid restriction, daily weights, monitor UOP Cardiology consulted - for echo today continue O2 as needed Diabetes mellitus type 2 with hyperglycemia: Hyperglycemic on presentation, received insulin in ED and overnight. Glc down to 150s now Leukocytosis: Likely related to use of steroids for Green virus. Continue to monitor for other signs of infection. Hypertension: received home medications this morning for hypertension Hyperlipidemia: Obtain and continue home medications Anemia chronic disease: Appears stable at this time, monitor daily labs. CKD 3: Appears stable this time, continue with IV diuresis and daily labs. COVID +: No ischemic change respiratory status. Continue to monitor closely. Dispo: anticipate dc home in 24-48hrs
[2020-07-02] MEDS ORDERED: PNEUMOCOCCAL VACCINE 0.5 ML IMVAC ONE (11:00)
[2020-07-02] MEDS ORDERED: INFLUENZA VACCINE (for 3y+) 0.5 ML DOSE IMVAC ONE (11:00)
[2020-07-02] MEDS: ENOXAPARIN 40 MG/0.4 ML SQ SCH (12:47)
[2020-07-02] MEDS: INSULIN GLARGINE 100 UNITS/ML SQ SCH (17:13)
[2020-07-02] MEDS: ATORVASTATIN 10 MG TAB PO SCH (20:58)
[2020-07-03 05:45] LABS: Hematocrit 23.6 % (39.6-49.0); MPV 9.5 fL (7.6-11.3); RBC Red Blood Cell Count 2.64 M/uL (4.33-5.43)
[2020-07-03 05:58] LABS: Potassium 3.6 mmol/L (3.5-5.1)
[2020-07-03] MEDS ORDERED: POTASSIUM CL SA 10 MEQ TAB PO ONE (07:07)
[2020-07-03] MEDS: INSULIN -REGULAR HUMAN 50 UNIT/0.5 ML ML SQ SCH ×4 (07:30→21:57)
[2020-07-03] MEDS: Meropenem 1,000 MG in NA CHLORIDE 0.9% 100 ML IV SCH ×2 (07:39→21:58)
[2020-07-03] MEDS: ENOXAPARIN 40 MG/0.4 ML SQ SCH (07:40)
[2020-07-03] MEDS: GABAPENTIN 300 MG CAP PO SCH (07:40)
[2020-07-03] MEDS: JUVEN PACKET PO SCH ×2 (07:40→21:00)
--- NOTE | 2020-07-03 09:57 | P.PN ---
Subjective Date of Service: 07/03/20 Primary Care Provider: Dr. Díaz, Dr. Carpenter Chief Complaint: ESBL bacteremia Subjective: Improving (Patient doing well no complaints) Doing well no complaints waiting PICC line Review of Systems Unremarkable Physical Examination - Vital Signs Temperature: 97.2 F Blood Pressure: 157/75 Pulse: 77 Respirations: 20 Pulse Ox (%): 94 - Physical Exam General: Alert, Oriented x3 Neck: Supple Respiratory: Clear to auscultation bilaterally Assessment & Plan - Problems (Diagnosis) (1) ESBL (extended spectrum beta-lactamase) producing bacteria infection Current Visit: Yes Status: Acute Plan: Doing much better awaiting PICC line and home meropenem IV infusion patient does not require any oxygen and no steroids hemoglobin stable Physician Review Additional Text: Dyspnea and volume overload suspect underlying undiagnosed CHF Diabetes mellitus type 2 with hyperglycemia Leukocytosis Hypertension Hyperlipidemia Anemia chronic disease CKD 3 COVID + Plan Dyspnea and volume overload suspect underlying undiagnosed CHF: continue IV lasix for diuresis, fluid restriction, daily weights, monitor UOP Cardiology consulted - for echo today continue O2 as needed Diabetes mellitus type 2 with hyperglycemia: Hyperglycemic on presentation, received insulin in ED and overnight. Glc down to 150s now Leukocytosis: Likely related to use of steroids for Green virus. Continue to monitor for other signs of infection. Hypertension: received home medications this morning for hypertension Hyperlipidemia: Obtain and continue home medications Anemia chronic disease: Appears stable at this time, monitor daily labs. CKD 3: Appears stable this time, continue with IV diuresis and daily labs. COVID +: No ischemic change respiratory status. Continue to monitor closely. Dispo: anticipate dc home in 24-48hrs
[2020-07-03] MEDS: buPROPion HCL 100 MG TAB PO SCH (10:22)
[2020-07-03 10:26] LABS: Platelet Estimate DECR; White Blood Cell Scan OK (OK)
[2020-07-03 10:27] LABS: Blood Morphology Comment NOT SEEN (NOT SEEN)
--- NOTE | 2020-07-03 13:53 | CON ---
Date of Consultation: 06/29/[address] Menchaca on 06/28/2020. I saw the patient on 06/29/2020. Reason For Consultation: CHF. History Of Present Illness: Mr. Jack is a 80-year-old Latin-[place] male with history of depress ion, hypertension, diabetes, dyslipidemia, chronic atrial fibrillation, who came in with chest x-ray showing COVID positive pneumonia, possible CHF. He has dyspnea on exertion, edema, and hypertension. Denied any chest pain, nausea, vomiting, diaphoresis, PND, orthopnea, pedal edema. No palpitation. No syncope. Past Medical History: As stated above. Allergies: NONE. Review of Systems: Negative. Social History: Negative. Family History: Negative. Medications: At home include Coreg, glimepiride, Eliquis, Zocor, Tradjenta, Cardura, Trulicity, [place] rdis with hydrochlorothiazide, Wellbutrin, and Neurontin. Physical Examination: Vital Signs: Stable, afebrile. HEENT: Negative. Neck: Supple with no bruit. Chest: Revealed some rales throughout. Cardiac: Normal. Abdomen: Benign. Extremities: Revealed no clubbing, cyanosis. He had 1+ edema. Diagnostic Data: Showed a potassium of 3.2. BNP is 906. Chest x-ray showed COVID pneumonia. Plate lets 127, hemoglobin of 9. Creatinine 1.58, glucose of 339. Troponin negative. BNP is 906 as state d earlier. EKG is nonspecific. Impression And Plan: 1.COVID pneumonia. 2.Possible acute congestive heart failure. Echocardiogram should be done. 3.Hypokalemia. 4.Poorly controlled diabetes. 5.Renal insufficiency. 6.Anemia. 7.Thrombocytopenia. 8.Dyslipidemia. 9.Chronic atrial fibrillation, on Eliquis. 10.Depression. 11.Neuropathy. I will continue his pressure regimen, treat him for COVID pneumonia, diurese and get an echocardiogram and we will see what that shows prior to making a final decision. When he goes ho me, should probably take him off hydrochlorothiazide from the Micardis and put him on Lasix. His daine al failure needs to be monitored closely. He may need workup for his anemia and low platelets down t he road. This may be all secondary to COVID for now. We will continue to follow on p.r.n. NB/BREENICE Voice ID: [id number] Report ID: [id number]
[2020-07-03] MEDS: INSULIN GLARGINE 100 UNITS/ML SQ SCH (16:10)
[2020-07-03] MEDS: ATORVASTATIN 10 MG TAB PO SCH (21:57)
[2020-07-04 06:21] LABS: Magnesium 1.8 mg/dL (1.8-2.4); Potassium 4.2 mmol/L (3.5-5.1)
[2020-07-04] MEDS: INSULIN -REGULAR HUMAN 50 UNIT/0.5 ML ML SQ SCH ×4 (07:18→23:59)
[2020-07-04] MEDS: Meropenem 1,000 MG in NA CHLORIDE 0.9% 100 ML IV SCH ×2 (08:41→21:00)
[2020-07-04] MEDS: buPROPion HCL 100 MG TAB PO SCH (08:41)
[2020-07-04] MEDS: ENOXAPARIN 40 MG/0.4 ML SQ SCH (08:41)
[2020-07-04] MEDS: JUVEN PACKET PO SCH ×2 (08:41→21:00)
[2020-07-04] MEDS: GABAPENTIN 300 MG CAP PO SCH (08:41)
[2020-07-04] MEDS: INSULIN GLARGINE 100 UNITS/ML SQ SCH (17:46)
[2020-07-04] MEDS: ATORVASTATIN 10 MG TAB PO SCH (21:00)
[2020-07-05] MEDS: INSULIN -REGULAR HUMAN 50 UNIT/0.5 ML ML SQ SCH ×4 (07:30→21:27)
[2020-07-05] MEDS: Meropenem 1,000 MG in NA CHLORIDE 0.9% 100 ML IV SCH ×2 (07:43→21:05)
[2020-07-05] MEDS: ENOXAPARIN 40 MG/0.4 ML SQ SCH (07:43)
[2020-07-05] MEDS: GABAPENTIN 300 MG CAP PO SCH (07:44)
[2020-07-05] MEDS: buPROPion HCL 100 MG TAB PO SCH (07:44)
[2020-07-05] MEDS: JUVEN PACKET PO SCH ×2 (07:45→21:07)
[2020-07-05 12:27] LABS: Absolute Lymphocytes (CBC) 1.7 K/uL (0.7-4.9); Basophils % 1.1 % (0-1.3); Hematocrit 25.3 % (39.6-49.0); MPV 8.9 fL (7.6-11.3); RBC Red Blood Cell Count 2.84 M/uL (4.33-5.43)
[2020-07-05 12:54] LABS: Magnesium 1.9 mg/dL (1.8-2.4); Phosphorus 2.6 mg/dL (2.5-4.9); Potassium 4.2 mmol/L (3.5-5.1)
[2020-07-05 13:17] LABS: Blood Morphology Comment NOT SEEN (NOT SEEN); Platelet Estimate ADEQ
[2020-07-05] MEDS: INSULIN GLARGINE 100 UNITS/ML SQ SCH (16:39)
[2020-07-05] MEDS: ATORVASTATIN 10 MG TAB PO SCH (21:05)
[2020-07-06] MEDS: INSULIN -REGULAR HUMAN 50 UNIT/0.5 ML ML SQ SCH ×4 (07:30→21:00)
--- NOTE | 2020-07-06 08:32 | P.PN ---
Subjective Date of Service: 07/04/20 Patient doing okay with no new complaints. Generalized weakness and will get physical therapy to start working with patient. He needs to get out of bed and ambulate. Will try to get the femoral line removed by getting a PICC line an. We have had very little luck with that today. Will try to get a PICC line nurse did place a PICC line or a midline tomorrow. He needs about 7 did 8 more days of IV antibiotic therapy. Review of Systems 10-point ROS is otherwise unremarkable Physical Examination - Vital Signs Temperature: 97 F Blood Pressure: 140/63 Pulse: 96 Respirations: 18 Pulse Ox (%): 96 - Physical Exam General: Alert, In no apparent distress, Oriented x3 Respiratory: Clear to auscultation bilaterally, Normal air movement Cardiovascular: Regular rate/rhythm, Normal S1 S2, No murmurs Gastrointestinal: Normal bowel sounds, Soft and benign, Non-distended, No tenderness Musculoskeletal: No clubbing, No swelling, No tenderness Neurological: Sensation intact, Cranial nerves 3-12 intact - Studies Medications List Reviewed: Yes Assessment & Plan - Problems (Diagnosis) (1) ESBL (extended spectrum beta-lactamase) producing bacteria infection Current Visit: Yes Status: Acute (2) Chronic kidney disease, stage 3 Current Visit: No Status: Acute (3) Diabetes mellitus type 2 in obese Current Visit: No Status: Acute (4) Pneumonia due to 2019 novel coronavirus Current Visit: No Status: Acute - Plan Plan: 1. Continue IV antibiotic therapy 2. Arrange for PICC line placement 3. IV antibiotics for 7-8 more days; Merrem 1 g Q 12 4. Continue with tapering dose of steroid 5. Monitor labs closely 6. Monitor H&H 7. GI and DVT prophylaxis Discharge Plan: Home Plan to discharge in: 48 Hours - Advance Directives Does patient have a Living Will: No Does patient have a Durable POA for Healthcare: No - Code Status/Comfort Care Code Status Assessed: Yes Code Status: Full Code Critical Care: No Time Spent Managing PTS Care (In Minutes): 35
--- NOTE | 2020-07-06 08:37 | P.PN ---
Subjective Date of Service: 07/04/20 PICC nurse unable the get a PICC line this morning. May need to do a mid line & discharge home. Review of Systems 10-point ROS is otherwise unremarkable Physical Examination - Vital Signs Temperature: 97 F Blood Pressure: 140/63 Pulse: 96 Respirations: 18 Pulse Ox (%): 96 - Physical Exam General: Alert, In no apparent distress, Oriented x3 Respiratory: Clear to auscultation bilaterally, Normal air movement Cardiovascular: Regular rate/rhythm, Normal S1 S2, No murmurs Gastrointestinal: Normal bowel sounds, Soft and benign, Non-distended, No tenderness Musculoskeletal: No clubbing, No swelling, No tenderness Neurological: Sensation intact, Cranial nerves 3-12 intact - Studies Medications List Reviewed: Yes Assessment & Plan - Problems (Diagnosis) (1) ESBL (extended spectrum beta-lactamase) producing bacteria infection Current Visit: Yes Status: Acute (2) Chronic kidney disease, stage 3 Current Visit: No Status: Acute (3) Diabetes mellitus type 2 in obese Current Visit: No Status: Acute (4) Pneumonia due to 2019 novel coronavirus Current Visit: No Status: Acute - Plan Plan: Continue with plan of care as mentioned below 1. Continue IV antibiotic therapy 2. Arrange for PICC line placement 3. IV antibiotics for 7-8 more days; Merrem 1g IVPB Q12 4. Continue with tapering dose of steroid 5. Monitor labs closely 6. Monitor H&H 7. GI and DVT prophylaxis Patient was able to ambulate with physical therapy about 25ft. Patient's strength is improving. Discharge Plan: Home Plan to discharge in: Greater than 2 days - Advance Directives Does patient have a Living Will: No Does patient have a Durable POA for Healthcare: No - Code Status/Comfort Care Code Status: Full Code Critical Care: No Time Spent Managing PTS Care (In Minutes): 35
[2020-07-06] MEDS: JUVEN PACKET PO SCH ×2 (09:00→21:42)
[2020-07-06] MEDS: Meropenem 1,000 MG in NA CHLORIDE 0.9% 100 ML IV SCH ×2 (09:04→21:40)
[2020-07-06] MEDS: GABAPENTIN 300 MG CAP PO SCH (09:05)
[2020-07-06] MEDS: buPROPion HCL 100 MG TAB PO SCH (09:05)
[2020-07-06] MEDS: ENOXAPARIN 40 MG/0.4 ML SQ SCH (09:05)
[2020-07-06] MEDS ORDERED: BISACODYL E.C. 5 MG TAB PO ONE (10:46)
--- NOTE | 2020-07-06 10:49 | RAD REPORT ---
EXAM DESCRIPTION: RAD - Chest Single View - 07/06/2020 1:57 am CLINICAL HISTORY: The patient is 80 years old and is Male; picc placement TECHNIQUE: Frontal view of the chest. COMPARISON: No relevant prior studies available. FINDINGS: LUNGS: Patchy opacities throughout the lungs are present. PLEURAL SPACE: Unremarkable. No pneumothorax. HEART: Unremarkable. No cardiomegaly. MEDIASTINUM: Unremarkable. BONES/JOINTS: There are degenerative changes of the spine. VASCULATURE: Atherosclerosis of the aorta is present. TUBES, LINES AND DEVICES: A right upper extremity PICC is present with the tip in the SVC is pre sent. IMPRESSION: 1. A right upper extremity PICC is present with the tip in the SVC is present. 2. Patchy opacities throughout the lungs suggesting an infectious process. Electronically signed by: Lexy Rawls MD 07/06/2020 2:28 AM SHOT BAGGER Due to temporary technical issues with the PACS/Fluency reporting system, reports are being signed by the in house radiologist without review as a courtesy to ensure prompt reporting. The interpreting r adiologist is fully responsible for the content of the report.
[2020-07-06 11:48] LABS: Absolute Lymphocytes (CBC) 2.8 K/uL (0.7-4.9); Basophils % 0.2 % (0-1.3); Hematocrit 28.5 % (39.6-49.0); MPV 8.9 fL (7.6-11.3)
[2020-07-06 12:22] LABS: White Blood Cell Scan OK (OK)
[2020-07-06 12:23] LABS: Blood Morphology Comment NOT SEEN (NOT SEEN); Platelet Estimate ADEQ
[2020-07-06 12:26] LABS: Folic Acid, (Folate) 4.4 ng/mL (3.1-17.5); Magnesium 1.9 mg/dL (1.8-2.4); Phosphorus 2.4 mg/dL (2.5-4.9); Potassium 4.4 mmol/L (3.5-5.1)
[2020-07-06] MEDS: INSULIN GLARGINE 100 UNITS/ML SQ SCH (16:37)
[2020-07-06] MEDS: ATORVASTATIN 10 MG TAB PO SCH (21:43)
[2020-07-07] MEDS: JUVEN PACKET PO SCH (07:49)
[2020-07-07] MEDS: INSULIN -REGULAR HUMAN 50 UNIT/0.5 ML ML SQ SCH ×3 (07:49→16:20)
[2020-07-07] MEDS: ENOXAPARIN 40 MG/0.4 ML SQ SCH (07:50)
[2020-07-07] MEDS: GABAPENTIN 300 MG CAP PO SCH (07:50)
[2020-07-07] MEDS: buPROPion HCL 100 MG TAB PO SCH (07:50)
[2020-07-07] MEDS: Meropenem 1,000 MG in NA CHLORIDE 0.9% 100 ML IV SCH (07:51)
--- NOTE | 2020-07-07 08:18 | P.PN ---
Subjective Date of Service: 07/06/20 Doing well. PICC line placed. Awaiting placement at this time. Patient medically stable for discharge Review of Systems 10-point ROS is otherwise unremarkable Physical Examination - Vital Signs Temperature: 97.3 F Blood Pressure: 134/60 Pulse: 77 Respirations: 24 Pulse Ox (%): 95 - Physical Exam General: Alert, In no apparent distress, Oriented x3 Respiratory: Clear to auscultation bilaterally, Normal air movement Cardiovascular: Regular rate/rhythm, Normal S1 S2, No murmurs Gastrointestinal: Normal bowel sounds, Soft and benign, Non-distended, No tenderness Musculoskeletal: No clubbing, No swelling, No tenderness Neurological: Sensation intact, Cranial nerves 3-12 intact - Studies Medications List Reviewed: Yes Assessment & Plan - Problems (Diagnosis) (1) ESBL (extended spectrum beta-lactamase) producing bacteria infection Current Visit: Yes Status: Acute (2) Chronic kidney disease, stage 3 Current Visit: No Status: Acute (3) Diabetes mellitus type 2 in obese Current Visit: No Status: Acute (4) Pneumonia due to 2019 novel coronavirus Current Visit: No Status: Acute - Plan Plan: Continue with plan of care as mentioned below 1. Continue IV antibiotic therapy; patient needs 7 more days of antibiotic therapy 2. PICC line placement completed; awaiting for arrangements for case management prior to discharge 3. Continue Merrem 1g IVPB q 12h 4. Continue with tapering dose of steroid 5. Monitor labs closely 6. GI and DVT prophylaxis Discharge Plan: Home Plan to discharge in: 24 Hours - Advance Directives Does patient have a Living Will: No Does patient have a Durable POA for Healthcare: No - Code Status/Comfort Care Code Status: Full Code Critical Care: No Time Spent Managing PTS Care (In Minutes): 25
--- NOTE | 2020-07-07 14:25 | P.DS ---
Discharge Date: 07/07/20 Primary Care Provider: Dr. Díaz, Dr. Carpenter Disposition: ROUTINE DISCHARGE Discharge Condition: GOOD Reason for Admission: ESBL bacteremia - Problems (1) ESBL (extended spectrum beta-lactamase) producing bacteria infection Current Visit: Yes Status: Acute (2) Chronic kidney disease, stage 3 Current Visit: No Status: Acute (3) Diabetes mellitus type 2 in obese Current Visit: No Status: Acute (4) Pneumonia due to 2019 novel coronavirus Current Visit: No Status: Acute Brief History of Present Illness: 80-year-old male with history of diabetes mellitus type 2, hypertension, hyperlipidemia, chronic kidney disease presents to the emergency department for shortness of breath, swelling of the lower extremities, high blood sugar. Patient was recently admitted to the hospital for COVID overnight and discharged on home oxygen and steroids. Patient recently had his steroids discontinued by pulmonology but still on home oxygen. Patient reported that he would be and noticed lower extremity swelling and was placed on Lasix by his primary care provider but had not yet taken this. Patient's workup in the em ergency department revealed stable seek ED 3, hyperglycemia to the 514, elevated BNP 906 elevated white blood cell count 17.7 with mild anemia hemoglobin 9.3 hematocrit 29.9 this is also close to patient's baseline. Patient has significant amount of bilateral pedal pitting edema. Patient does not have diagnosis of CHF, has not had echocardiogram here for review. ED provider wishes to admit patient under observation for further evaluation and management. When I saw the patient in the ER he was awake, alert, oriented x3. Patient with significant bilateral pitting edema lower extremities bibasilar crackles, patient saturating around 93% on 3-4 L per nasal cannula at this time. Will admit under observation for diuresis. Vital Signs/Physical Exam: Temp Pulse Resp BP Pulse Ox 98.6 F 81 20 115/54 L 97 07/07/20 12:00 07/07/20 12:00 07/07/20 12:00 07/07/20 12:00 07/07/20 12:00 Laboratory Data at Discharge: WBC 12.0 K/uL (4.3-10.9) H D 07/06/20 11:33 Hgb 9.1 g/dL (13.6-17.9) L 07/06/20 11:33 Hct 28.5 % (39.6-49.0) L 07/06/20 11:33 Plt Count 189 K/uL (152-406) D 07/06/20 11:33 PT 16.2 SECONDS (9.5-12.5) H 06/29/20 09:57 INR 1.38 06/29/20 09:57 APTT 22.9 SECONDS (24.3-36.9) L 06/29/20 09:57 Sodium 137 mmol/L (136-145) 07/06/20 11:33 Potassium 4.4 mmol/L (3.5-5.1) 07/06/20 11:33 BUN 27 mg/dL (7-18) H 07/06/20 11:33 Creatinine 1.46 mg/dL (0.55-1.3) H 07/06/20 11:33 Glucose 231 mg/dL (74-106) H 07/06/20 11:33 Phosphorus 2.4 mg/dL (2.5-4.9) L 07/06/20 11:33 Magnesium 1.9 mg/dL (1.8-2.4) 07/06/20 11:33 Total Bilirubin 0.3 mg/dL (0.2-1.0) 06/30/20 04:50 AST 11 U/L (15-37) L 06/30/20 04:50 ALT 18 U/L (12-78) 06/30/20 04:50 Alkaline Phosphatase 100 U/L (45-117) 06/30/20 04:50 Triglycerides 115 mg/dL (<150) 06/29/20 03:06 Cholesterol 99 mg/dL (<200) 06/29/20 03:06 HDL Cholesterol 34 mg/dL (40-60) L 06/29/20 03:06 Cholesterol/HDL Ratio 2.91 06/29/20 03:06 Home Medications: Carvedilol [Coreg] 12.5 mg PO BID 06/13/20 Doxazosin [Cardura*] 1 mg PO BEDTIME 06/13/20 Dulaglutide [Trulicity] 1.5 mg SQ 1X 06/13/20 Gabapentin 300 mg PO DAILY 06/13/20 Glimepiride 4 mg PO BID 06/13/20 Linagliptin [Tradjenta] 5 mg PO DAILY 06/13/20 Simvastatin 20 mg PO BEDTIME 06/13/20 Telmisartan/Hydrochlorothiazid [Micardis Hct 80-12.5 mg Tablet] 1 each PO DAILY 06/13/20 buPROPion HCl [Bupropion HCl Sr] 100 mg PO DAILY 06/13/20 Apixaban [Eliquis] 5 mg PO BID 30 Days #60 tablet 06/18/20 levoFLOXacin [Levaquin*] 500 mg PO DAILY 6 Days #6 tab 06/18/20 predniSONE [Prednisone*] 20 mg PO SEECOM #21 tab 06/18/20 Thong [Thong*] 1 pkt PO BID #60 powd.pack 07/07/20 New Medications: Thong [Thong*] 1 pkt PO BID #60 powd.pack Patient Discharge Instructions: OK TO DC IV AND DC HOME WITH HOME HEALTH. FOLLOW-UP WITH PCP IN 1-2 WEEKS. RETURN TO THE ER IF SYMPTOMS WORSENS. FINISH 7 MORE DAYS OF ANTIBIOTICS. LABS: CBC, CMP IN 1 WEEK. RETURN TO THE ER IF SYMPTOMS WORSENS. CALL ME AT [phone] IF ANY QUESTIONS REGARDING HOSPITAL STAY Diet: AHA Activity: Ad cailin Followup: Genet Díaz DO [Primary Care Provider] -
[2020-07-07] MEDS: INSULIN GLARGINE 100 UNITS/ML SQ SCH (16:20)
[2020-07-07 16:50] VITALS: TEMP 97.8
[2020-07-07 16:51] VITALS: BP 123/60
[2020-07-07 17:59] VITALS: O2SAT 97
== END 2020-07-07 18:25 | disposition home or self-care (01) | DRG 871 ==
LOC: ER 18:56 → ERHOLD 20:52 → 4TH 22:54 → 3RD-ICU 06-29 11:00 → OBSVTOIN 06-29 11:08 → 4TH 07-01 17:45
PROVIDERS: ADMIT Hospitalist; ATTEND Hospitalist
PROC: 02HV33Z Insertion of Infusion Device into Superior Vena Cava, Percutaneous Approach (ICD-10-PCS; principal; 2020-07-06)
DX: A41.89 Other specified sepsis (principal); U07.1 COVID-19; J12.89 Other viral pneumonia; R65.21 Severe sepsis with septic shock; E87.3 Alkalosis; Z16.12 Extended spectrum beta lactamase (ESBL) resistance; I48.20 Chronic atrial fibrillation, unspecified; I12.9 Hypertensive chronic kidney disease with stage 1 through stage 4 chronic kidney disease, or unspecified chronic kidney disease; N18.30 Chronic kidney disease, stage 3 unspecified; E11.22 Type 2 diabetes mellitus with diabetic chronic kidney disease; E11.65 Type 2 diabetes mellitus with hyperglycemia; E11.40 Type 2 diabetes mellitus with diabetic neuropathy, unspecified; F32.9 Major depressive disorder, single episode, unspecified; D63.8 Anemia in other chronic diseases classified elsewhere; D72.829 Elevated white blood cell count, unspecified; E87.6 Hypokalemia; D69.6 Thrombocytopenia, unspecified; E78.5 Hyperlipidemia, unspecified; E66.9 Obesity, unspecified; Z68.36 Body mass index [BMI] 36.0-36.9, adult; Z79.52 Long term (current) use of systemic steroids; Z79.84 Long term (current) use of oral hypoglycemic drugs; Z79.01 Long term (current) use of anticoagulants; Z79.899 Other long term (current) drug therapy; Z23 Encounter for immunization
CPT/HCPCS: 36415; 36569; 70450; 71045; 80048; 80053; 80061; 80076; 80202; 81003; 81015; 82140; 82274; 82607; 82728; 82746; 82805; 82947; 83036; 83540; 83605; 83735; 83880; 84100; 84132; 84145; 84439; 84443; 84484; 85014; 85018; 85025; 85027; 85610; 85730; 86140; 86850; 86900; 86901; 87040; 87077; 87086; 87088; 87186; 87205; 90471; 90732; 93005; 93306; 94660; 96374; 96375; 97112; 97116; 97161; 97530; 99285; J0692; J1644; J1650; J1815; J1940; J2185; J3370; J3475; J7030; J7040; J7050; J7060; J7799; P9047; Q2035; U0003

== ENCOUNTER 2020-09-13 08:03 | Day surgery (SDC) | payer OTHER ==
[2020-09-09 14:46] LABS: Absolute Lymphocytes (CBC) 2.7 K/uL (0.7-4.9); Basophils % 1.4 % (0-1.3); Hematocrit 30.1 % (39.6-49.0); Lymphocytes % 29.8 % (15.3-44.8); MPV 9.7 fL (7.6-11.3); RBC Red Blood Cell Count 3.44 M/uL (4.33-5.43)
[2020-09-09 14:55] LABS: Protime INR 1.16
[2020-09-09 15:02] LABS: Potassium 5.2 mmol/L (3.5-5.1)
--- NOTE | 2020-09-09 16:18 | RAD REPORT ---
EXAM DESCRIPTION: Maxine Varner And Lat (2 Views)09/09/2020 3:00 pm CLINICAL HISTORY: Preop for circumcision. Hypertension COMPARISON: June 2020 FINDINGS: [id number] bilateral pulmonary opacities without significant change. Heart is mildly enlarged IMPRESSION: Mild to moderate bilateral pulmonary opacities without significant change. I suspect zac t some of this is chronic. However, there probably is a mild superimposed pneumonia
[2020-09-13] MEDS ORDERED: CEFAZOLIN/SWI 2gm 2 GM/20 ML SYR ONE (08:50)
[2020-09-13] MEDS ORDERED: NA CHLORIDE 0.9% 1,000 ML ONE (08:50)
[2020-09-13] MEDS ORDERED: LIDOCAINE 1% MPF 5 ML VIAL ONE (10:16)
[2020-09-13] MEDS ORDERED: dexAMETHasone 10 MG/ML VIAL ONE (10:16)
[2020-09-13] MEDS ORDERED: FENTANYL CITR 100 MCG/2 ML ONE (10:16)
[2020-09-13] MEDS ORDERED: propofoL 200 MG/20 ML VIAL IV ONE ×3 (10:16→11:18)
[2020-09-13] MEDS ORDERED: LIDOCAINE 1% MPF 30 ML VIAL ONE (10:18)
[2020-09-13] MEDS ORDERED: BUPIVACAINE 0.25% PF 30 ML VIAL ONE (10:18)
[2020-09-13] MEDS: BACITRACIN OINTMENT 15 GM TUBE TOP ONE ×2 (10:34→11:10)
[2020-09-13] MEDS ORDERED: Oxycodone HCl/Acetaminophen 1 TAB TAB PO PRN (11:39)
[2020-09-13 12:05] VITALS: BP 123/42; TEMP 97.2; O2SAT 100
--- NOTE | 2020-09-13 13:48 | OP ---
Surgeon: XAVI WEI Preoperative Diagnosis: Dense phimosis. Postoperative Diagnoses: 1.Dense phimosis. 2.Balanoposthitis. Principle Procedure: Sleeve circumcision. Indication For Procedure: Mr. Jack is a 80-year-old gentleman with several chronic medical condit ions, who was admitted to the hospital with complications of COVID infection. I met him in the COVID Intensive Care Unit with the inability for the staff to place a catheter associated with him having urinary retention. I had to dilate the skin of the penis in order to place a catheter and I saw the patient after his discharge in the office where we discussed management options. He elected definiti ve management via circumcision mostly because of the potential concern for underlying skin changes th at could be premalignant. Procedure In Detail: The patient was consented in the preoperative holding area before being transfe rred to the operative suite where sedation was provided. I then prepped and draped his genitalia aft er shaving the pre-pubic region. I then provided a 1:1 mixture of 0.25% Marcaine and 1% lidocaine pl ain where I injected 35 cc into the infrapubic region and the region of the neurovascular bundles cedric aterally. I also provided a frenular block. Once this penile block was completed, we then draped th e patient accordingly and I performed a dorsal slit prior to being able to retract the skin and visua lize the glans penis. Beneath the foreskin, additional Betadine prep was applied to cleanse any smeg ma beneath, and then I incised at the coronal ridge the shaft skin. I then completely retracted the foreskin and left an approximately 1 cm preputial margin, then incising the intervening skin in the d orsal midline. All of the foreskin in between and its dartos attachments was then removed using elec trocautery and then pinpoint fulguration using Adson forceps and electrocautery was performed around the entirety of the circumference of the dartos layers of the penis to ensure complete hemostasis and prevent hematoma formation. Once the area was completely hemostatic, irrigation was applied and add itional fulguration was then applied to any residual oozing that was noted. Again, once the area was completely hemostatic, I then performed quadrant sutures of 3-0 chromic dipped in bacitracin before over-sewing the intervening tissue in a running horizontal mattress fashion. In the end, the cosmeti c result was excellent, but there was evidence of some balanitic changes of the glans with BXO of the foreskin potentially visible. Bacitracin was applied as well as a Aric and a Coban, and the patien t was then awakened, transferred to a stretcher and then transferred to the recovery room in good con dition. Complications: None. Estimated Blood Loss: Less than 20 cc. Discharge Disposition: He will follow up in the [facility]rology [facility] with nurse practitionerJared in 1-2 weeks. He will be given a prescription for Lotrisone to be applied once a day in the evenings wi th bacitracin applied every day in the mornings for the next 6 weeks. Pathologic results should be a lso discussed with the patient on followup with nurse practitionerJared, and if necessary, subse quent follow up with me can be determined thereafter. INOCENCIO/BERENICE Voice ID: [id number] Report ID: [id number]
== END 2020-09-13 12:23 | disposition home or self-care (01) ==
LOC: OR 08:03
PROVIDERS: ATTEND Urology
PROC: 0VTTXZZ Resection of Prepuce, External Approach (ICD-10-PCS; principal; 2020-09-13 10:15)
DX: N47.1 Phimosis (principal); N47.6 Balanoposthitis; Z20.822 Contact with and (suspected) exposure to COVID-19
CPT/HCPCS: 93005; 85025; 80048; 36415; 85610; 82947; 88304; 71046; 54150; U0003; J2704 ×3; J1100; J0690; J7030; J3010